=== PATIENT | female | born 1955 | race Caucasian/White ===

== ENCOUNTER → 2016-11-28 | Outpatient (CLI) | payer MEDICARE ==
[~2016-11-28] MED LIST: ADVAIR 250/501 EA INH; ALBUTEROL0.09 MG/A1 INH; ALBUTEROL0.09 MG/A2 IH; AMBIEN5 MG PO; AMITIZA24 MCG PO; AMOXICILLIN500 MG PO; APAP/OXYCODONE1 TA3 PO; ATIVAN0.5 MG PO; AUGMENTIN 875 M1 TAB PO; B12,B-12,B 12500 MC1 PO; BISACODYL5 MG PO; CALCIUM + D; CALCIUM + D 6001 TA1 PO; CARAFATE1 G1; CARAFATE1 G1 PO; CEFTIN250 MG PO; CELEBREX200 MG PO; CIPROFLOXACIN500 MG PO; CLARITIN10 MG PO; COMBIVENT1 ARO IH; CYMBALTA60 M1 PO; CYMBALTA60 MG PO; DAYPRO600 M1 PO; DIFLUCAN150 MG PO; DIOVAN80 M1 PO; DIPHENHYDRAM50 MG/M1 IV; DUONEB 3 MG/3 ML3 M1 INH; EXFORGE 10 MG-11 TAB PO; EXFORGE 5 MG; EXFORGE 5 MG PO; FERROUS SULFAT325 MG PO; FERROUS SULFATE27 MG PO; FLAGYL500 MG PO; FLEXERIL5 MG PO; FLONASE 0.05% 121 EA NAS; HUMIRA40 MG/0.1 SC; HYDROCODONE BIT1 T11 PO; KENALOG 0.1% OI15 GM T; LEVAQUIN500 M1 PO; LOPID600 MG PO; LOPRESSOR25 MG PO; LOPRESSOR50 MG PO; MACROBID100 M1 PO; MEDROL DOSEPAK4 MG PO; METOPROLOL50 MG PO; MOM30 M1 PO; MOTRIN800 MG PO; MUCINEX ER600 MG PO; MYCELEX TROCHE10 MG MM; NICODERM14 MG/24 H TD; NORCO 325 MG-51 TAB PO; NORFLEX100 MG PO; NYSTATIN100000 U/M PO; ONDANSETRON2 MG/ML IV; PERCOCET 325 MG1 TA3 PO; PERCOCET 325 MG1 TAB PO; PERCOCET 500 MG1 TAB PO; PHENERGAN W/ DE30 ML PO; PREDNICOT10 MG PO; PREDNISONE10 MG PO; PREDNISONE20 MG; PREDNISONE5 MG PO; PRILOSEC20 M2 PO; PRILOSEC20 MG PO; PRILOSEC40 MG PO; PROTONIX40 M1 IV; PROTONIX40 MG PO; Percocet 325 MG1 TAB PO; ROBAXIN750 MG PO; SKELAXIN800 MG PO; SOLU-MEDROL40 MG IV; SPIRIVA18 MCG IH; SPIRIVA18 MCG PO; SYMBICORT1 AE1 INH; TESSALON PERLE200 MG PO; TOPICORT0.25% TP; TRAMADOL HCL50 MG PO; ULTRAM50 MG PO; VIBRAMYCIN100 MG PO; VICO75300 PO; VICODIN 5/500 505 MG PO; VICODIN 500 MG-1 TAB PO; VIT B-6100 MG PO; VITAMIN B625 MG PO; WELLBUTRIN75 MG PO; XANAX0.5 MG PO; ZITHROMAX Z PA250 MG PO; ZOFRAN ODT4 MG SL; ZOFRAN4 MG PO; ZOLOFT50 MG PO; [UNRECOGNIZED DRUG - OTHER] PO; [UNRECOGNIZED DRUG - OTHER] PO
[2016-11-28 12:20] LABS: ALBUMIN 3.5 gm/dl (3.1-4.5); PHOSPHOROUS 3.6 mg/dL (2.5-4.9); POTASSIUM 4.6 mmol/L (3.5-5.1)
[2016-11-28 12:33] LABS: BILIRUBIN NEGATIVE (NEGATIVE); BLOOD 1+ (NEGATIVE); CLARITY CLEAR (CLEAR); COLOR YELLOW (YELLOW); GLUCOSE NEGATIVE (NEGATIVE); KETONE NEGATIVE (NEGATIVE); LEUKO ESTERASE NEGATIVE (NEGATIVE); NITRITE NEGATIVE (NEGATIVE); PH 5.5 (5.0-9.0); PROTEIN NEGATIVE (NEGATIVE); UROBILINOGEN 0.2 E.U./dl (0.2-1.0)
[2016-11-28 12:42] LABS: BACTERIA 1+; RBC 0-2 rbc/hpf (0-2)
== END | disposition home or self-care (01) ==
LOC: LAB 11:33
PROVIDERS: Internal Medicine Nephrology
DX: N17.9 Acute kidney failure, unspecified (principal)

== ENCOUNTER → 2017-01-01 | Outpatient (CLI) | payer MEDICARE | END | disposition home or self-care (01) | LOC: US 16:33 | DX: N17.9 Acute kidney failure, unspecified (principal) ==

== ENCOUNTER → 2017-02-13 | Outpatient (CLI) | payer MEDICARE ==
[2017-02-13 10:24] LABS: HEMATOCRIT 42.9 % (37.0-47.0); HEMOGLOBIN 13.6 g/dl (12.0-16.0); MEAN CELL VOLUME 91.3 fl (81.0-99.0); MEAN CORPUSCULAR HGB 28.9 pg (27.0-31.0); MEAN CORPUSCULAR HGB CONC 31.7 g/dl (33.0-37.0); PLATELET COUNT AUTOMATED 38 10*3/uL (130-400); RED CELL DISTRI WIDTH 13.2 % (0-14.5); WHITE BLOOD COUNT 7.4 10*3/uL (4.8-10.8)
[2017-02-13 10:46] LABS: PLATELET SUFFICIENCY LOW (NORMAL); TOTAL CELLS COUNTED 100 #CELLS
[2017-02-13 10:47] LABS: CREATININE 1.38 mg/dL (0.55-1.02); PHOSPHOROUS 3.3 mg/dL (2.5-4.9); POTASSIUM 4.4 mmol/L (3.5-5.1)
[2017-02-13 10:49] LABS: ALBUMIN 3.4 gm/dl (3.1-4.5)
[2017-02-13 12:23] LABS: BILIRUBIN NEGATIVE (NEGATIVE); BLOOD TRACE-INTACT (NEGATIVE); CLARITY SL CLOUDY (CLEAR); COLOR YELLOW (YELLOW); GLUCOSE NEGATIVE (NEGATIVE); KETONE NEGATIVE (NEGATIVE); LEUKO ESTERASE NEGATIVE (NEGATIVE); NITRITE NEGATIVE (NEGATIVE); SPECIFIC GRAVITY <= 1.005 (1.005-1.030); UROBILINOGEN 0.2 E.U./dl (0.2-1.0)
[2017-02-13 12:30] LABS: URINE CHLORIDE, RANDOM < 10 mmol/L
[2017-02-13 12:42] LABS: BACTERIA 2+; EPITHELIAL CELLS 15-20
== END | disposition home or self-care (01) ==
LOC: LAB 09:35
PROVIDERS: Internal Medicine Nephrology
DX: E78.5 Hyperlipidemia, unspecified (principal); N17.9 Acute kidney failure, unspecified; Z79.899 Other long term (current) drug therapy

== ENCOUNTER 2017-06-05 13:58 | Inpatient (IN) | payer MEDICARE ==
[~2017-06-05] VITALS: Ht 160 cm; Wt 69.9 kg
--- NOTE | ~2017-06-05 | PR ---
[place], [place] PROGRESS NOTE NAME: CARL CHOE [facility] #: [id number] UNIT #: [id number] ROOM: 427 DOCTOR: JOHN MATHUR MD BIRTHDATE: [birth year] DOS: 06/07/2017 SUBJECTIVE: The patient is doing better. She is alert, awake and responsive. REVIEW OF SYSTEMS HEENT: No trouble swallowing. No double vision. No loss of vision. No pain. ENT AND RESPIRATORY: No wheeze. No change in voice. No cough. No shortness of breath. No coughing up blood. No epistaxis. CARDIOLOGIC: No chest pain. No dizziness. No irregular heartbeat. No leg edema. No palpitations. No shortness of breath. HEMATOLOGIC AND LYMPH: No past transfusion. No fatigue. No loss of appetite. No easy bruising. GASTROENEROLOGIC: No change in bowel habits. No vomiting blood. No abdominal cramping. No nausea. No vomiting. No diarrhea. No constipation. No blood in stool. FEMALE REPRODUCTIVE: No dyspareunia. No pelvic pain. MUSCULOSKELETAL: No back pain. No muscle pain or weakness. No tingling/numbness. UROLOGIC: No pain with urination. No difficulty urinating. No frequent urination. NEUROLOGIC: No burning pain in feet. No trouble with coordination. No loss of consciousness. No headache. No tingling/numbness. No memory loss. PHYSICAL EXAMINATION GENERAL: Pleasant woman in no apparent distress. VITAL SIGNS: Blood pressure 132/72, respirations 15, pulse 80, temperature 98.3. HEAD, EARS, EYES, NOSE AND THROAT: Normocephalic, atraumatic NECK AND THYROID: Supple. No JVD, thyromegaly, or lymphadenopathy. HEART: Normal S1, S2. Regular rate and rhythm. LUNGS: Clear to auscultation and percussion. ABDOMEN: Soft. Nontender, nondistended. Bowel sounds present. EXTREMITIES: Normal ROM. No clubbing. No edema. LABORATORY DATA: White count of 4.6, hemoglobin 8.2, hematocrit 26.2, platelet count of 24,000. Sodium 145, potassium 3.9, chloride 109, bicarbonate 30, EGFR more than 60. ASSESSMENT: 1. Pancytopenia. 2. History of acute GI hemorrhage. 3. ITP. 4. Von Willebrand disease. PLAN: A detailed discussion, the patient will get anemia workup. We will get anemia workup depending upon the further intervention. The patient was advised if she has not had any bruises, bleeding to the closest petechia, instructed to call us. Ample time was given to the patient to ask me questions. [place], [place] PROGRESS NOTE NAME: CARL CHOE UNIT #: [id number] ROOM: 427 DOCTOR: JOHN MATHUR MD BIRTHDATE: [birth year] JOHN MATHUR MD CM:PNTRANS 1413 1850 JOHN MATHUR MD 06/07/17 1848 interface
--- NOTE | ~2017-06-05 | O ---
[place], [place] OPERATIVE NOTE NAME: CARL CHOE [facility] #: [id number] UNIT #: [id number] ROOM: 427 DO[facility] BIRTH[facility]: [birth year] DOS: 06/07/2017 GASTROENDOSCOPIC REPORT INDICATIONS: This is a 61-year-old patient who presented with a chief complaint of dark stool, colostomy and drop of H and H. The patient had to be admitted for definitive evaluation and endoscopy of upper tract has been organized for her. PAST MEDICAL HISTORY: Gastroesophageal reflux, hypertension, ischemic colitis and as a result, an ileostomy, depression, COPD, ITP with significant thrombocytopenia of approximately 25,000 average. PAST SURGICAL HISTORY: Colectomy, ileostomy, cholecystectomy, tubal ligation, cataract, , appendectomy, all recognized. SOCIAL HISTORY: Nonsmoker, nonalcohol consumer. FAMILY HISTORY: Noncontributory. ALLERGIES: ASPIRIN. MEDICATION: List has been reviewed. The patient has been continuously on omeprazole amongst the other medications reviewed. PROCEDURE: Today's procedure part of investigation is panendoscopy plus biopsy. PREMEDICATION: Versed and Diprivan. SCOPE: Olympus forward-viewing gastroscope Q10 video. REPORT: After putting the patient in left lateral position and application of lubricant to the scope, the scope was introduced. Thereafter, under direct visualization, advanced through the length of esophagus without difficulty. There is no evidence of esophageal varicosity. There is a small hiatal hernia of 2 cm. Gastric pouch was entered. Gastritis of mild degree seen. Duodenal bulb, second and third part within normal limits. There is no evidence of bleeding. The patient extubated after biopsy from antrum, tolerated procedure well. IMPRESSION: Mild gastritis, hiatal hernia, status post antral biopsy. PLAN AND DISCUSSION: This patient has severe thrombocytopenia secondary to ITP. Initial H and H on 06/05/2017 was 10, 7, and 34 with platelet count of 36. This has further dropped to 8 and 26 after one unit of transfusion and her platelets again ring around 24,000. Blood cultures have been negative. This patient's source of bleeding could have had also contribution from severe thrombocytopenia on mucosal blood loss as well, possibility of angiodysplastic lesions along the way in the small bowel, also known history of Von Willebrand disease. The patient therefore is going to be observed with H and H followup [place], [place] OPERATIVE NOTE NAME: CARL CHOE UNIT #: [id number] ROOM: 427 DOCTOR: KACI NORIEGA,ARCHANA BIRTHDATE: [birth year] and she does not have upper GI source of bleeding as well we know that she has had ischemic colitis and resection. We will be standing by, otherwise, she will be fed and will reassess. She has already received a unit of packed cell and a unit of platelet transfusion. The patient has been on iron therapy as well. The contribution to tolerate darker stool rather could be from above in appearance of the stool color. Thank you very much indeed. ARCHANA CLEMONS MD CM:OPRECORD:OPERATIVE NOTE [id number] ARCHANA CLEMONS MD 06/07/17 1432 interface
--- NOTE | ~2017-06-05 | CON ---
[place], [place] REPORT OF CONSULTATION NAME: CARL CHOE [facility] #: [id number] UNIT #: [id number] ROOM: 427 DOCTOR: JOHN MATHUR MD BIRTHDATE: [birth year] DOS: 06/06/2017 HISTORY OF PRESENT ILLNESS: The patient is a pleasant 61-year-old Euro-Martiniquais woman who presented to the Emergency Room because of dark tarry stools in her ileostomy bag, which has been started about 3 days ago and has got progressively worse, though she denies any chest pain, nausea, vomiting or shortness of breath. She also had a history of previous ____ in 2015 or 2016 and subsequently consulted for further evaluation and management. PAST MEDICAL HISTORY: Significant for chronic anemia, chronic ITP, COPD, depression, GERD, hypercholesterolemia with hyperglycemia, hypertension, ileostomy, insomnia, ischemic colitis, chronic Von Willebrand disease as per record. PAST SURGICAL HISTORY: Appendectomy, , cataract surgery, cholecystectomy, colon resection, tubal ligation, ileostomy. SOCIAL HISTORY: No smoking, no drinking or drug abuse, chronic tobacco use. FAMILY HISTORY: Father at age 50-60 of colon cancer, had ITP. Mother age 60 of lung cancer. ALLERGIES: ASPIRIN. MEDICATIONS: On Norvasc, albuterol, Lopressor, Prilosec, Percocet, Seroquel and Zocor. REVIEW OF SYSTEMS: CONSTITUTIONAL: No chills. No fatigue. No fever. No loss of appetite. No night sweats. No weakness. No weight loss. HEENT: No trouble swallowing. No loss of smell. No loss of hearing. No double vision. No pain. No discharge. ENT AND RESPIRATORY: No wheeze. No sore throat. No change in voice. No hearing loss. No nose bleed. No cough. No trouble breathing through nose. No shortness of breath. No coughing up blood. No epistaxis. CARDIOVASCULAR: No chest pain. No dizziness. No irregular heartbeat. No leg edema. No pain in legs while walking. No palpitations. No shortness of breath. DERMATOLOGIC: No acne. No hives. No laceration. No mole. No rash. ENDOCRINE: No cold intolerance. No diabetes. No fatigue. No hot flashes. No polydipsia. No polyuria. No urinating frequently. No weight loss. HEMATOLOGIC AND LYMPH: No fatigue. No easy bruising. GASTROENTEROLOGIC: No change in bowel habits. No indigestion. No frequent bloating. No vomiting blood. No abdominal cramping. No nausea. No heartburn. No vomiting. No abdominal pain. No dysphagia. No diarrhea. No constipation. No blood in stool. FEMALE REPRODUCTIVE: No vaginal itching. No difficulty urinating. No heavy periods. No dyspareunia. No sexually active. No dysmenorrhea. No pelvic pain. No breast pain. No nipple discharge. No abnormal vaginal discharge. No hot flashes. [place], [place] REPORT OF CONSULTATION NAME: CARL CHOE UNIT #: [id number] ROOM: 427 DOCTOR: JOHN MATHUR MD BIRTHDATE: [birth year] MUSCULOSKELETAL: No back pain. No muscle pain or weakness. No neck pain. No tingling/numbness. No swelling/bruising. No osteoporosis treatment. OPHTHALMOLOGIC: No double vision. No diminished vision. No loss of vision. UROLOGIC: No dysuria. No frequent nighttime urination. No irregular periods. No pain with urination. No difficulty urinating. No blood in urine. No frequent urination. No urinary incontinence. NEUROLOGIC: No loss of sensation in specific body area. No vertigo. No burning pain in feet. No trouble with balance. No trouble with coordination. No loss of consciousness. No loss of feeling/power. No confusion. No headache. No tingling/numbness. PSYCHOLOGIC: No tinnitus. No headaches. No shortness of breath. No weight decrease. No nausea. No vomiting. No abdominal discomfort. No constipation. No diarrhea. No depression. No anxiety. PHYSICAL EXAMINATION: GENERAL: Pleasant woman in no apparent distress. VITAL SIGNS: Stable. She is afebrile. HEENT: Oral mucosa appears intact. The external ears are normal in appearance. Nares are patent without lesions, exudates, erythema, or inflammation. Tongue is symmetrical. Uvula is midline. NECK AND THYROID: Neck supple without palpable masses. Trachea is midline. No thyromegaly. No carotid bruit or JVD. BREASTS: Normal. Nipples unremarkable. No drainage. No lumps felt on either side. HEART: Normal S1, S2, without significant murmur, rub, or gallop. LUNGS: Clear to auscultation and percussion with good air entry bilaterally. The patient is breathing easily without the use of accessory muscles. Diaphragmatic excursions are intact. ABDOMEN: No costovertebral angle tenderness. Soft. No organomegaly or masses. Nontender. No hernias present. Liver and spleen are not palpable. LYMPHATIC: No adenopathy noted in the cervical, supraclavicular, axillary, or inguinal regions. NEUROLOGIC: Nonfocal. Oriented to person, place, and time. MENTAL STATUS: Appropriate for mood and affect. PERIPHERAL PULSES: No varicosities. Femoral and pedal pulses are palpable. EXTREMITIES: Without cyanosis, clubbing, or edema. No gross anomalies. LABORATORY DATA: Sodium 141, potassium 3.7, chloride 103, bicarbonate 32, EGFR is 42. White count of 6.7, hemoglobin of 9.5, hematocrit 30.5, platelet count 26,000. Sodium 141, potassium 4.0, chloride 104, bicarbonate 33, total protein 5.6, albumin 2.9, SGOT 25, SGPT 16. ASSESSMENT: 1. Chronic idiopathic thrombocytopenic purpura, since she has been for 60 years. 2. Gastrointestinal bleed. 3. Anemia. 4. Abdominal aortic aneurysm. 5. History of von Willebrand disease. [place], [place] REPORT OF CONSULTATION [facility]: [id number] #: [id number] ROOM: [facility] DOCTOR: JOHN MATHUR MD BIRTHDATE: [birth year] PLAN: I will review records from clinic. The patient was initially diagnosed as well as she will be getting platelets before the procedure. We will keep a close watch at this time. Advised any bruising, fatigue etc., to call for a close followup for now. We will review the CAT scan. Ample time was given to the patient to ask me questions and we will follow. Thanks for consulting and letting me participate in the care of this interesting patient. JOHN MATHUR MD CM:CONSTR:REPORT OF CONSULTATION 1434 06/07/17 0031 interface
[2017-06-05 14:06] VITALS: BP 93/61
[2017-06-05] MEDS ORDERED: PRILOSEC20 M1 PO (14:09)
[2017-06-05] MEDS ORDERED: NORVASC2.5 MG PO (14:10)
[2017-06-05] MEDS ORDERED: SEROQUEL100 MG PO (14:11)
[2017-06-05] MEDS ORDERED: ZOCOR20 MG PO (14:11)
[2017-06-05 14:48] LABS: HEMOGLOBIN 10.7 g/dl (12.0-16.0); MEAN CELL VOLUME 92.4 fl (81.0-99.0); MEAN CORPUSCULAR HGB 29.1 pg (27.0-31.0); MEAN CORPUSCULAR HGB CONC 31.5 g/dl (33.0-37.0); NUCLEATED RED BLOOD CELL 0.3 % (0.0-0.0); PLATELET COUNT AUTOMATED 36 10*3/uL (130-400); RED BLOOD COUNT 3.68 10*6/uL (4.10-5.10); WHITE BLOOD COUNT 7.8 10*3/uL (4.8-10.8)
[2017-06-05 14:56] VITALS: BP 122/98
[2017-06-05 14:57] LABS: ACT PARTIAL THROMBO TIME 25.6 SECONDS (20.8-31.5)
[2017-06-05 15:03] LABS: ALBUMIN 3.3 gm/dl (3.1-4.5); ALKALINE PHOSPHATASE 80 U/L (45-117); BUN 16 mg/dl (7-24); CHLORIDE 103 mmol/L (98-107); CREATININE 1.29 mg/dL (0.55-1.02); LIPASE 372 U/L (73-393); POTASSIUM 3.7 mmol/L (3.5-5.1); SGOT/AST 30 IU/L (3-35); SGPT/ALT 18 U/L (12-78); SODIUM 141 mmol/L (136-145); TOTAL PROTEIN 6.7 gm/dL (6.4-8.2)
[2017-06-05 15:04] LABS: TROPONIN I < 0.015 ng/ml (<0.045)
[2017-06-05 15:17] LABS: ATYPICAL LYMPHS 1 % (0-0); TOTAL CELLS COUNTED 100 #CELLS
[2017-06-05 15:18] LABS: PLATELET SUFFICIENCY LOW (NORMAL); POLYCHROMASIA SLIGHT
[2017-06-05 17:25] VITALS: BP 101/55
[2017-06-05 18:20] VITALS: BP 102/64
[2017-06-05 20:00] VITALS: BP 111/65
[2017-06-06] VITALS: BP 128/72
[2017-06-06 04:00] VITALS: BP 116/80
[2017-06-06 04:22] LABS: HEMATOCRIT 30.5 % (37.0-47.0); HEMOGLOBIN 9.5 g/dl (12.0-16.0); MEAN CELL VOLUME 94.1 fl (81.0-99.0); MEAN CORPUSCULAR HGB 29.3 pg (27.0-31.0); MEAN CORPUSCULAR HGB CONC 31.1 g/dl (33.0-37.0); RED BLOOD COUNT 3.24 10*6/uL (4.10-5.10); RED CELL DISTRI WIDTH 14.2 % (0-14.5); WHITE BLOOD COUNT 6.7 10*3/uL (4.8-10.8)
[2017-06-06 04:26] LABS: PLATELET COUNT AUTOMATED 26 10*3/uL (130-400)
[2017-06-06 04:36] LABS: ALBUMIN 2.9 gm/dl (3.1-4.5); ALKALINE PHOSPHATASE 65 U/L (45-117); BUN 12 mg/dl (7-24); CHLORIDE 104 mmol/L (98-107); CHOLESTEROL 119 mg/dL (<200); CREATININE 0.92 mg/dL (0.55-1.02); HDL CHOLESTEROL 30 mg/dl (40-60); LDL CHOLESTEROL 43 mg/dL (9-159); PHOSPHOROUS 3.5 mg/dL (2.5-4.9); SGOT/AST 25 IU/L (3-35); SGPT/ALT 16 U/L (12-78); SODIUM 141 mmol/L (136-145); TOTAL PROTEIN 5.6 gm/dL (6.4-8.2); TRIGLYCERIDES 230 mg/dl (<150); VLDL CHOLESTEROL 46 mg/dL (6-40)
[2017-06-06 04:38] LABS: FREE T4 0.94 ng/dl (0.76-1.46)
[2017-06-06 04:44] LABS: TOTAL CELLS COUNTED 100 #CELLS
[2017-06-06 04:45] LABS: PLATELET SUFFICIENCY LOW (NORMAL); POLYCHROMASIA SLIGHT
[2017-06-06 06:46] LABS: VITAMIN D, 25-HYDROXY 14.2 ng/mL (30-100)
[2017-06-06 08:00] VITALS: BP 119/73
[2017-06-06 12:00] VITALS: BP 106/66
[2017-06-06 16:00] VITALS: BP 114/70
[2017-06-06 20:00] VITALS: BP 123/81
[2017-06-07] VITALS (9 sets, daily range): BP systolic 98–145; BP diastolic 53–91
[2017-06-07 07:26] LABS: HEMATOCRIT 26.2 % (37.0-47.0); HEMOGLOBIN 8.2 g/dl (12.0-16.0); MEAN CELL VOLUME 95.3 fl (81.0-99.0); MEAN CORPUSCULAR HGB 29.8 pg (27.0-31.0); MEAN CORPUSCULAR HGB CONC 31.3 g/dl (33.0-37.0); MEAN PLATELET VOLUME 13.3 fl (9.6-12.3); RED BLOOD COUNT 2.75 10*6/uL (4.10-5.10); RED CELL DISTRI WIDTH 14.7 % (0-14.5); WHITE BLOOD COUNT 4.6 10*3/uL (4.8-10.8)
[2017-06-07 07:31] LABS: PLATELET COUNT AUTOMATED 24 10*3/uL (130-400)
[2017-06-07 07:48] LABS: BUN 10 mg/dl (7-24); CHLORIDE 109 mmol/L (98-107); CREATININE 0.91 mg/dL (0.55-1.02); POTASSIUM 3.9 mmol/L (3.5-5.1); SODIUM 145 mmol/L (136-145)
[2017-06-07 08:33] LABS: PLATELET SUFFICIENCY LOW (NORMAL); POLYCHROMASIA SLIGHT; TOTAL CELLS COUNTED 100 #CELLS
[2017-06-08] VITALS: BP 99/49
[2017-06-08 07:33] LABS: BUN 5 mg/dl (7-24); CHLORIDE 109 mmol/L (98-107); CREATININE 0.84 mg/dL (0.55-1.02); POTASSIUM 3.8 mmol/L (3.5-5.1); SODIUM 144 mmol/L (136-145)
[2017-06-08 07:37] LABS: BASOPHILS 1 % (0-1); TOTAL CELLS COUNTED 100 #CELLS
[2017-06-08 07:40] LABS: HEMATOCRIT 26.5 % (37.0-47.0); HEMOGLOBIN 8.2 g/dl (12.0-16.0); MEAN CORPUSCULAR HGB 29.7 pg (27.0-31.0); MEAN CORPUSCULAR HGB CONC 30.9 g/dl (33.0-37.0); MEAN PLATELET VOLUME 13.7 fl (9.6-12.3); NUCLEATED RED BLOOD CELL 0.8 % (0.0-0.0); RED BLOOD COUNT 2.76 10*6/uL (4.10-5.10); RED CELL DISTRI WIDTH 15.4 % (0-14.5); WHITE BLOOD COUNT 3.6 10*3/uL (4.8-10.8)
[2017-06-08 07:41] LABS: PLATELET SUFFICIENCY LOW (NORMAL); POLYCHROMASIA SLIGHT
[2017-06-08 07:42] LABS: PLATELET COUNT AUTOMATED 32 10*3/uL (130-400)
[2017-06-08 08:00] VITALS: BP 122/66
[2017-06-08 12:00] VITALS: BP 107/52
[2017-06-08 16:00] VITALS: BP 108/55
[2017-06-08 20:00] VITALS: BP 95/56
[2017-06-09] VITALS: BP 93/64
[2017-06-09 06:21] LABS: HEMATOCRIT 26.1 % (37.0-47.0); MEAN CELL VOLUME 95.6 fl (81.0-99.0); MEAN CORPUSCULAR HGB 29.3 pg (27.0-31.0); MEAN CORPUSCULAR HGB CONC 30.7 g/dl (33.0-37.0); NUCLEATED RED BLOOD CELL 0.8 % (0.0-0.0); PLATELET COUNT AUTOMATED 33 10*3/uL (130-400); RED BLOOD COUNT 2.73 10*6/uL (4.10-5.10); RED CELL DISTRI WIDTH 15.6 % (0-14.5)
[2017-06-09 06:46] LABS: BUN 8 mg/dl (7-24); CHLORIDE 107 mmol/L (98-107); CREATININE 0.95 mg/dL (0.55-1.02); POTASSIUM 3.8 mmol/L (3.5-5.1); SODIUM 145 mmol/L (136-145)
[2017-06-09 07:23] LABS: PLATELET SUFFICIENCY LOW (NORMAL); POLYCHROMASIA SLIGHT; TOTAL CELLS COUNTED 100 #CELLS
[2017-06-09 08:00] VITALS: BP 126/54
[2017-06-09] MEDS ORDERED: VITAMIN D-32000 UNIT PO (11:02)
[2017-06-09] MEDS ORDERED: PROTONIX40 MG PO (14:43)
== END 2017-06-09 12:46 | disposition home or self-care (01) | DRG 378 ==
LOC: ED 13:58 → ICCU 17:33 → 4E 17:33 → EDHOLD 17:33 → ICCU 17:56 → 4E 06-06 11:25
PROVIDERS: Emergency Medicine; Internal Medicine; Internal Medicine Gastroenterology; Internal Medicine Hematology & Oncology
PROC: 0DB68ZX Excision of Stomach, Via Natural or Artificial Opening Endoscopic, Diagnostic (ICD-10-PCS; principal; 2017-06-07)
PROC: 30233R1 Transfusion of Nonautologous Platelets into Peripheral Vein, Percutaneous Approach (ICD-10-PCS; 2017-06-07)
DX: K29.71 Gastritis, unspecified, with bleeding (principal); D62 Acute posthemorrhagic anemia; D69.3 Immune thrombocytopenic purpura; D61.818 Other pancytopenia; R65.10 Systemic inflammatory response syndrome (SIRS) of non-infectious origin without acute organ dysfunction; E44.0 Moderate protein-calorie malnutrition; D68.0 Von Willebrand disease; I71.4 Abdominal aortic aneurysm, without rupture; J44.9 Chronic obstructive pulmonary disease, unspecified; K21.9 Gastro-esophageal reflux disease without esophagitis; F32.9 Major depressive disorder, single episode, unspecified; R00.0 Tachycardia, unspecified; D72.810 Lymphocytopenia; D72.9 Disorder of white blood cells, unspecified; E55.9 Vitamin D deficiency, unspecified; I10 Essential (primary) hypertension; G47.00 Insomnia, unspecified; K44.9 Diaphragmatic hernia without obstruction or gangrene; E78.00 Pure hypercholesterolemia, unspecified; E78.1 Pure hyperglyceridemia; Z68.27 Body mass index [BMI] 27.0-27.9, adult; Z88.6 Allergy status to analgesic agent; Z90.49 Acquired absence of other specified parts of digestive tract; Z98.51 Tubal ligation status; Z98.49 Cataract extraction status, unspecified eye; Z80.1 Family history of malignant neoplasm of trachea, bronchus and lung; Z80.0 Family history of malignant neoplasm of digestive organs; Z79.899 Other long term (current) drug therapy; Z93.3 Colostomy status; Z93.2 Ileostomy status

== ENCOUNTER 2017-06-13 09:20 | Inpatient (IN) | payer MEDICARE ==
[~2017-06-13] VITALS: Ht 157.5 cm; Wt 73.5 kg
[2017-06-13] VITALS (9 sets, daily range): BP systolic 87–120; BP diastolic 50–82
--- NOTE | ~2017-06-13 | CON ---
[place], [place] REPORT OF CONSULTATION NAME: CARL CHOE [facility] #: [id number] UNIT #: [id number] ROOM: 404 DOCTOR: KEVAN NORIEGAJOHN BIRTHDATE: [birth year] DOS: 06/14/2017 HISTORY OF PRESENT ILLNESS: The patient is a pleasant 61-year-old Euro-Slovak woman who was recently discharged from the [facility] and started complaining of weakness, lightheadedness, and headaches. At that time, she was noted to be anemic, possible GI bleed, and underwent EGD. On routine CBC examination, was found to be anemic and thrombocytopenic and consulted for further evaluation and management. PAST MEDICAL HISTORY: 1. ITP, chronic progressive anemia. 2. History of Von Willebrand disease. 3. Depression. 4. GERD. 5. History of ischemic colitis. 6. Hypercholesterolemia. 7. Hyperglycemia. 8. Hypertension. 9. Ileostomy present. PAST SURGICAL HISTORY: Appendectomy, , cataract surgery, history of cholecystectomy, and colon resection. SOCIAL HISTORY: Smokes about 1 packet per day for last 20 years. No drinking. FAMILY HISTORY: Father at age 50 also had colon cancer, had ITP. Mother at age 60 had lung cancer. ALLERGIES: ASPIRIN. MEDICATIONS: Norvasc, Wellbutrin, Lopressor, Prilosec, Percocet, Seroquel, and Zocor. PHYSICAL EXAMINATION: GENERAL: A pleasant woman in no apparent distress. VITAL SIGNS: Stable. She is afebrile. HEENT: Normocephalic, atraumatic. Pupils are reactive. Nonicteric sclerae. NECK: Supple. No JVD, thyromegaly, or lymphadenopathy. LUNGS: Clear to auscultation and percussion. ____. ABDOMEN: Soft, nontender. Bowel sounds positive. No rebound or guarding. No hepatosplenomegaly. EXTREMITIES: Positive pulses. NEUROLOGIC: Oriented to person, place, and time. MENTAL STATUS: Appropriate mood and affect. LYMPH NODES: No lymphadenopathy in the cervical, supraclavicular, axillary, or inguinal regions. REVIEW OF SYSTEMS: HEENT: The patient has headaches, blurring of vision, and dizziness. CARDIOVASCULAR: No chest pain, palpitations, or arrhythmia. [place], [place] REPORT OF CONSULTATION NAME: CARL CHOE UNIT #: [id number] ROOM: 404 DOCTOR: JOHN MATHUR MD BIRTHDATE: [birth year] RESPIRATORY: No shortness of breath or hemoptysis. GASTROINTESTINAL: No nausea, vomiting, bowel habit, loss of weight, hematemesis, bright red blood per rectum, constipation, or diarrhea. GENITOURINARY: No increased frequency, urgency, or burning sensation in the urine, difficulty micturating. LABORATORY DATA: From 06/13/2017, white count of 6.4, hemoglobin 7.8, hematocrit 26.4, and platelet count 39,000. ASSESSMENT: 1. Symptomatic anemia. 2. Chronic idiopathic thrombocytopenic purpura. 3. Acute renal failure with tubular necrosis. 4. History of Von Willebrand disease. PLAN: We will do peripheral smear to get blood. We will also get hemolytic workup. Platelets are stable at this time, if start dropping further, then intervention. Depending on the workup, further intervention discussed. We will follow. She is status post 3 x 3 units of packed RBC. Thanks for consulting and letting me to participate in the care of this interesting patient. JOHN MATHUR MD CM:CONSTR:REPORT OF CONSULTATION 1455 06/15/17 0205 interface
[~2017-06-13 09:20] MED LIST changes: +NORVASC2.5 MG PO; +PRILOSEC20 M1 PO; +SEROQUEL100 MG PO; +VITAMIN D-32000 UNIT PO; +ZOCOR20 MG PO
[2017-06-13 10:53] LABS: HEMATOCRIT 26.4 % (37.0-47.0); HEMOGLOBIN 7.8 g/dl (12.0-16.0); MEAN CELL VOLUME 98.5 fl (81.0-99.0); MEAN CORPUSCULAR HGB 29.1 pg (27.0-31.0); MEAN CORPUSCULAR HGB CONC 29.5 g/dl (33.0-37.0); NUCLEATED RED BLOOD CELL 0.1 10*3/uL (0.0-0.0); NUCLEATED RED BLOOD CELL 0.9 % (0.0-0.0); PLATELET COUNT AUTOMATED 39 10*3/uL (130-400); RED BLOOD COUNT 2.68 10*6/uL (4.10-5.10); RED CELL DISTRI WIDTH 17.3 % (0-14.5); WHITE BLOOD COUNT 6.4 10*3/uL (4.8-10.8)
[2017-06-13 11:07] LABS: ALBUMIN 3.1 gm/dl (3.1-4.5); ALKALINE PHOSPHATASE 75 U/L (45-117); BUN 12 mg/dl (7-24); CHLORIDE 104 mmol/L (98-107); CREATININE 1.15 mg/dL (0.55-1.02); POTASSIUM 3.9 mmol/L (3.5-5.1); SGOT/AST 10 IU/L (3-35); SGPT/ALT 14 U/L (12-78); SODIUM 139 mmol/L (136-145); TOTAL PROTEIN 6.3 gm/dL (6.4-8.2)
[2017-06-13 11:08] LABS: TROPONIN I < 0.015 ng/ml (<0.045)
[2017-06-13 11:12] LABS: BASOPHILS 1 % (0-1); OVALOCYTES FEW; PLATELET SUFFICIENCY LOW (NORMAL); POLYCHROMASIA SLIGHT; TOTAL CELLS COUNTED 100 #CELLS
[2017-06-13 21:03] LABS: HEMOGLOBIN 6.6 g/dl (12.0-16.0); MEAN CELL VOLUME 97.8 fl (81.0-99.0); MEAN CORPUSCULAR HGB 29.3 pg (27.0-31.0); MEAN PLATELET VOLUME 13.8 fl (9.6-12.3); NUCLEATED RED BLOOD CELL 0.4 % (0.0-0.0); PLATELET COUNT AUTOMATED 30 10*3/uL (130-400); RED BLOOD COUNT 2.25 10*6/uL (4.10-5.10); RED CELL DISTRI WIDTH 17.1 % (0-14.5); WHITE BLOOD COUNT 5.7 10*3/uL (4.8-10.8)
[2017-06-13 21:25] LABS: POLYCHROMASIA SLIGHT; TOTAL CELLS COUNTED 100 #CELLS
[2017-06-13 21:26] LABS: PLATELET SUFFICIENCY LOW (NORMAL)
[2017-06-14] VITALS (15 sets, daily range): BP systolic 99–140; BP diastolic 57–83
[2017-06-14 07:13] LABS: HEMATOCRIT 27.3 % (37.0-47.0); HEMOGLOBIN 8.4 g/dl (12.0-16.0); MEAN CORPUSCULAR HGB 28.4 pg (27.0-31.0); MEAN CORPUSCULAR HGB CONC 30.8 g/dl (33.0-37.0); NUCLEATED RED BLOOD CELL 0.7 % (0.0-0.0); PLATELET COUNT AUTOMATED 31 10*3/uL (130-400); RED BLOOD COUNT 2.96 10*6/uL (4.10-5.10); RED CELL DISTRI WIDTH 19.9 % (0-14.5); WHITE BLOOD COUNT 4.3 10*3/uL (4.8-10.8)
[2017-06-14 07:22] LABS: MEAN CELL VOLUME 92.2 fl (81.0-99.0)
[2017-06-14 07:31] LABS: ALBUMIN 2.7 gm/dl (3.1-4.5); ALKALINE PHOSPHATASE 62 U/L (45-117); BUN 8 mg/dl (7-24); CHLORIDE 109 mmol/L (98-107); CREATININE 1.01 mg/dL (0.55-1.02); PHOSPHOROUS 4.5 mg/dL (2.5-4.9); SGOT/AST 16 IU/L (3-35); SGPT/ALT 11 U/L (12-78); SODIUM 145 mmol/L (136-145); TOTAL PROTEIN 5.6 gm/dL (6.4-8.2)
[2017-06-14 07:39] LABS: ACT PARTIAL THROMBO TIME 27.5 SECONDS (20.8-31.5)
[2017-06-14 07:58] LABS: TOTAL CELLS COUNTED 100 #CELLS
[2017-06-14 07:59] LABS: PLATELET SUFFICIENCY LOW (NORMAL); POLYCHROMASIA SLIGHT
[2017-06-14 08:58] LABS: RETICULOCYTE % 8.24 % (0.50-2.50)
[2017-06-14 10:23] LABS: HEMATOCRIT 28.3 % (37.0-47.0); HEMOGLOBIN 8.6 g/dl (12.0-16.0)
[2017-06-15] VITALS (11 sets, daily range): BP systolic 95–138; BP diastolic 42–77
[2017-06-15 05:53] LABS: HEMATOCRIT 27.3 % (37.0-47.0); HEMOGLOBIN 8.2 g/dl (12.0-16.0); MEAN CELL VOLUME 92.9 fl (81.0-99.0); MEAN CORPUSCULAR HGB 27.9 pg (27.0-31.0); RED BLOOD COUNT 2.94 10*6/uL (4.10-5.10); RED CELL DISTRI WIDTH 19.6 % (0-14.5); WHITE BLOOD COUNT 4.3 10*3/uL (4.8-10.8)
[2017-06-15 06:14] LABS: PLATELET COUNT AUTOMATED 28 10*3/uL (130-400)
[2017-06-15 06:22] LABS: ACT PARTIAL THROMBO TIME 28.6 SECONDS (20.8-31.5)
[2017-06-15 06:24] LABS: ALBUMIN 2.9 gm/dl (3.1-4.5); ALKALINE PHOSPHATASE 68 U/L (45-117); BUN 9 mg/dl (7-24); CHLORIDE 105 mmol/L (98-107); CREATININE 1.11 mg/dL (0.55-1.02); PHOSPHOROUS 4.5 mg/dL (2.5-4.9); POTASSIUM 4.1 mmol/L (3.5-5.1); SGOT/AST 15 IU/L (3-35); SGPT/ALT 13 U/L (12-78); SODIUM 143 mmol/L (136-145); TOTAL PROTEIN 5.8 gm/dL (6.4-8.2)
[2017-06-15 06:32] LABS: PLATELET SUFFICIENCY LOW (NORMAL); TOTAL CELLS COUNTED 100 #CELLS
[2017-06-15 06:33] LABS: POLYCHROMASIA SLIGHT
[2017-06-15 10:04] LABS: HEMATOCRIT 32.4 % (37.0-47.0); HEMOGLOBIN 10.1 g/dl (12.0-16.0); MEAN CELL VOLUME 92.6 fl (81.0-99.0); MEAN CORPUSCULAR HGB 28.9 pg (27.0-31.0); MEAN CORPUSCULAR HGB CONC 31.2 g/dl (33.0-37.0); PLATELET COUNT AUTOMATED 31 10*3/uL (130-400); RED CELL DISTRI WIDTH 18.1 % (0-14.5); WHITE BLOOD COUNT 4.8 10*3/uL (4.8-10.8)
[2017-06-15 10:22] LABS: ATYPICAL LYMPHS 1 % (0-0); BASOPHILS 1 % (0-1); TOTAL CELLS COUNTED 100 #CELLS
[2017-06-15 10:23] LABS: OVALOCYTES FEW; POLYCHROMASIA SLIGHT
[2017-06-15 10:24] LABS: PLATELET SUFFICIENCY LOW (NORMAL)
[2017-06-16 06:03] LABS: HEMOGLOBIN 9.9 g/dl (12.0-16.0)
[2017-06-16 06:17] LABS: BUN 12 mg/dl (7-24); CHLORIDE 104 mmol/L (98-107); CREATININE 1.06 mg/dL (0.55-1.02); POTASSIUM 4.1 mmol/L (3.5-5.1); SODIUM 143 mmol/L (136-145)
[2017-06-16 08:00] VITALS: BP 112/72
== END 2017-06-16 11:17 | disposition home or self-care (01) | DRG 377 ==
LOC: ED 09:20 → EDHOLD 12:06 → 4E 12:06
PROVIDERS: Family Medicine; Internal Medicine Gastroenterology; Internal Medicine Hematology & Oncology; Internal Medicine Nephrology; Student in an Organized Health Care Education/Training Program
PROC: 30233N1 Transfusion of Nonautologous Red Blood Cells into Peripheral Vein, Percutaneous Approach (ICD-10-PCS; principal; 2017-06-14)
DX: K92.2 Gastrointestinal hemorrhage, unspecified (principal); N17.0 Acute kidney failure with tubular necrosis; D69.3 Immune thrombocytopenic purpura; I95.9 Hypotension, unspecified; D69.6 Thrombocytopenia, unspecified; D68.0 Von Willebrand disease; R65.10 Systemic inflammatory response syndrome (SIRS) of non-infectious origin without acute organ dysfunction; D64.9 Anemia, unspecified; D72.810 Lymphocytopenia; J44.9 Chronic obstructive pulmonary disease, unspecified; E78.2 Mixed hyperlipidemia; K21.9 Gastro-esophageal reflux disease without esophagitis; E78.00 Pure hypercholesterolemia, unspecified; F32.9 Major depressive disorder, single episode, unspecified; Z96.1 Presence of intraocular lens; F17.210 Nicotine dependence, cigarettes, uncomplicated; I71.4 Abdominal aortic aneurysm, without rupture; E55.9 Vitamin D deficiency, unspecified; G47.00 Insomnia, unspecified; Z80.1 Family history of malignant neoplasm of trachea, bronchus and lung; Z90.49 Acquired absence of other specified parts of digestive tract; Z88.6 Allergy status to analgesic agent; Z79.899 Other long term (current) drug therapy; Z93.2 Ileostomy status; Z98.51 Tubal ligation status; Z98.42 Cataract extraction status, left eye; Z98.41 Cataract extraction status, right eye; Z80.0 Family history of malignant neoplasm of digestive organs; Z83.3 Family history of diabetes mellitus; Z71.6 Tobacco abuse counseling

== ENCOUNTER → 2017-06-24 | Outpatient (CLI) | payer MEDICARE ==
[2017-06-24 13:55] LABS: IRON 42 ug/dL (50-170); TOTAL IRON BINDING CAPACITY 412 ug/dl (250-450)
[2017-06-24 14:26] LABS: FERRITIN 18.9 ng/mL (10.0-291.0)
== END | disposition home or self-care (01) ==
LOC: LAB 12:08
PROVIDERS: Internal Medicine Hematology & Oncology
DX: D61.818 Other pancytopenia (principal); D50.9 Iron deficiency anemia, unspecified

== ENCOUNTER → 2017-07-29 | Emergency (ER) | payer MEDICARE ==
[~2017-07-29] VITALS: Ht 157.4 cm; Wt 73.5 kg
[2017-07-29 11:17] LABS: HEMATOCRIT 18.8 % (37.0-47.0); MEAN CELL VOLUME 103.9 fl (81.0-99.0); MEAN CORPUSCULAR HGB 29.3 pg (27.0-31.0); MEAN CORPUSCULAR HGB CONC 28.2 g/dl (33.0-37.0); NUCLEATED RED BLOOD CELL 0.1 10*3/uL (0.0-0.0); NUCLEATED RED BLOOD CELL 1.3 % (0.0-0.0); RED BLOOD COUNT 1.81 10*6/uL (4.10-5.10); RED CELL DISTRI WIDTH 19.4 % (0-14.5); WHITE BLOOD COUNT 10.3 10*3/uL (4.8-10.8)
[2017-07-29 11:23] LABS: HEMOGLOBIN 5.3 g/dl (12.0-16.0); PLATELET COUNT AUTOMATED 21 10*3/uL (130-400)
[2017-07-29 11:35] LABS: ALBUMIN 2.5 gm/dl (3.1-4.5); ALKALINE PHOSPHATASE 63 U/L (45-117); BUN 22 mg/dl (7-24); CHLORIDE 108 mmol/L (98-107); CREATININE 1.12 mg/dL (0.55-1.02); LIPASE 434 U/L (73-393); POTASSIUM 4.4 mmol/L (3.5-5.1); SGOT/AST 15 IU/L (3-35); SGPT/ALT 15 U/L (12-78); SODIUM 143 mmol/L (136-145); TOTAL CELLS COUNTED 100 #CELLS; TOTAL PROTEIN 5.5 gm/dL (6.4-8.2)
[2017-07-29 11:36] LABS: PLATELET SUFFICIENCY LOW (NORMAL); POLYCHROMASIA MODERATE
[2017-07-29 11:38] LABS: TROPONIN I < 0.015 ng/ml (<0.045)
[2017-07-29 18:08] VITALS: BP 107/66
== END ==
LOC: ED 10:34
PROVIDERS: Emergency Medicine
DX: K92.2 Gastrointestinal hemorrhage, unspecified (principal); D64.9 Anemia, unspecified; F17.200 Nicotine dependence, unspecified, uncomplicated; J44.9 Chronic obstructive pulmonary disease, unspecified; K21.9 Gastro-esophageal reflux disease without esophagitis; E78.00 Pure hypercholesterolemia, unspecified; I10 Essential (primary) hypertension; Z98.890 Other specified postprocedural states; Z90.49 Acquired absence of other specified parts of digestive tract; Z98.51 Tubal ligation status; Z79.899 Other long term (current) drug therapy; Z88.6 Allergy status to analgesic agent

== ENCOUNTER 2018-03-08 13:19 | Emergency (ER) | payer MEDICARE ==
[~2018-03-08] VITALS: Ht 157.4 cm; Wt 78.5 kg
[2018-03-08 13:21] VITALS: BP 104/64
[2018-03-08] MEDS ORDERED: FLONASE ALLERG9.9 ML NAS (13:48)
[2018-03-08] MEDS ORDERED: CLARITIN10 MG PO (13:48)
[2018-03-08] MEDS ORDERED: PREDNISONE10 MG PO (13:48)
== END 2018-03-08 14:43 | disposition home or self-care (01) ==
LOC: ED 13:19
DX: B34.9 Viral infection, unspecified (principal); J44.9 Chronic obstructive pulmonary disease, unspecified; K21.9 Gastro-esophageal reflux disease without esophagitis; I10 Essential (primary) hypertension; E78.2 Mixed hyperlipidemia; F17.200 Nicotine dependence, unspecified, uncomplicated; Z88.6 Allergy status to analgesic agent; Z79.899 Other long term (current) drug therapy

== ENCOUNTER 2018-12-10 12:10 | Emergency (ER) | payer MEDICARE ==
[~2018-12-10] VITALS: Ht 154.9 cm; Wt 79.4 kg
[~2018-12-10 12:10] MED LIST changes: +DECADRON4 MG PO; +FLONASE ALLERG9.9 ML NAS; +LIPITOR40 MG PO; +PERCOCET 7.5-31 EACH PO; +TRANEXAMIC ACI PO; +TRINTELLIX20 MG PO
[2018-12-10 12:12] VITALS: BP 133/80
[2018-12-10] MEDS ORDERED: PREDNISONE50 MG PO (13:03)
[2018-12-10] MEDS ORDERED: VISTARIL25 MG PO (13:03)
== END 2018-12-10 13:05 | disposition home or self-care (01) ==
LOC: ED 12:10
DX: L40.9 Psoriasis, unspecified (principal); I10 Essential (primary) hypertension; J44.9 Chronic obstructive pulmonary disease, unspecified; Z87.891 Personal history of nicotine dependence; Z79.899 Other long term (current) drug therapy; Z88.6 Allergy status to analgesic agent; Z93.2 Ileostomy status

== ENCOUNTER 2019-05-18 17:07 | Inpatient (IN) | payer MEDICARE ==
[~2019-05-18] VITALS: Ht 154.9 cm; Wt 80.9 kg
[2019-05-18 17:07] VITALS: BP 125/81
[~2019-05-18 17:07] MED LIST changes: +PREDNISONE50 MG PO; +VISTARIL25 MG PO
[2019-05-18] MEDS ORDERED: SUBOXONE 8 MG-1 EACH SL (17:10)
[2019-05-18 17:44] VITALS: BP 138/87
[2019-05-18 18:02] LABS: ALBUMIN 3.7 gm/dl (3.1-4.5); ALKALINE PHOSPHATASE 101 U/L (45-117); BUN 10 mg/dl (7-24); CHLORIDE 106 mmol/L (98-107); CREATININE 1.03 mg/dL (0.55-1.02); POTASSIUM 4.2 mmol/L (3.5-5.1); SGOT/AST 37 IU/L (3-35); SGPT/ALT 34 U/L (12-78); SODIUM 140 mmol/L (136-145); TOTAL PROTEIN 7.3 gm/dL (6.4-8.2)
[2019-05-18 18:25] VITALS: BP 106/52
--- NOTE | 2019-05-18 18:31 | NUR ---
PT W/O ADDITIONAL COMPLAINTS VOICED AND NO N/V NOTED WHILE IN ED,FAMILY @ BEDSIDE AND CALL LIGHT WITHIN REACH.
--- NOTE | 2019-05-18 18:40 | NUR ---
PO FLUIDS PROVIDED.
[2019-05-18 18:42] LABS: HEMATOCRIT 39.5 % (37.0-47.0); HEMOGLOBIN 12.1 g/dl (12.0-16.0); MEAN CORPUSCULAR HGB CONC 30.6 g/dl (33.0-37.0); MEAN PLATELET VOLUME 12.1 fl (9.6-12.3); RED BLOOD COUNT 4.03 10*6/uL (4.10-5.10); RED CELL DISTRI WIDTH 14.5 % (0-14.5); WHITE BLOOD COUNT 9.5 10*3/uL (4.8-10.8)
[2019-05-18 18:44] LABS: PLATELET COUNT AUTOMATED 25 10*3/uL (130-400)
--- NOTE | 2019-05-18 18:46 | NUR ---
PT AWARE THAT REQUIRE A URINE SAMPLE FOR ANALYSIS,UNABLE TO PROVIDE @ THIS TIME,AISLINN NICOLE NOTIFIED.
[2019-05-18 19:05] LABS: TOTAL CELLS COUNTED 100 #CELLS
[2019-05-18 19:06] LABS: PLATELET SUFFICIENCY NORMAL (NORMAL)
--- NOTE | 2019-05-18 19:19 | NUR ---
PT STATING "CAN USE MY OXYGEN DURING THE DAY IF I NEED IT BUT USUALLY AT NIGHT", PT W/O ACUTE DISTRESS NOTED @ THIS TIME,FAMILY @ BEDSIDE.
[2019-05-18 19:33] VITALS: BP 128/70
[2019-05-18 19:35] LABS: BILIRUBIN NEGATIVE (NEGATIVE); BLOOD 2+ (NEGATIVE); CLARITY SL CLOUDY (CLEAR); COLOR YELLOW (YELLOW); GLUCOSE NEGATIVE (NEGATIVE); KETONE NEGATIVE (NEGATIVE); LEUKO ESTERASE TRACE (NEGATIVE); NITRITE NEGATIVE (NEGATIVE); SPECIFIC GRAVITY >= 1.030 (1.005-1.030); UROBILINOGEN 0.2 E.U./dl (0.2-1.0)
[2019-05-18 19:43] LABS: URINE AMPHETAMINES < 1000 (1000ng/ml); URINE BARBITURATES < 200 (200ng/ml); URINE BENZODIAZEPINES < 200 (200ng/ml); URINE CANNABINOIDS (THC) < 50 (50ng/ml); URINE COCAINE < 300 (300ng/ml); URINE METHADONE < 300 (300ng/ml); URINE OPIATES < 300 (300ng/ml)
[2019-05-18 19:51] LABS: URINE PHENCYCLIDINE < 25 (25ng/ml)
[2019-05-18 19:54] LABS: EPITHELIAL CELLS TNTC; WBC 0-2 wbc/hpf (0-5)
[2019-05-18 19:55] LABS: BACTERIA 2+; MUCOUS TRACE
[2019-05-18 20:40] VITALS: BP 111/60
--- NOTE | 2019-05-18 20:40 | NUR ---
A 63, admitted to 4E, under the services of JOLLY Bullard DO with a diagnosis of INTRACTABLE NAUSEA AND VOMITING GEN WEAKNESS. Chief complaint is VOMITING. Patient arrived via stretcher from ER. Monitor applied. Initial assessment completed. Vital signs taken and recorded. JOLLY BULLARD DO notified of admission to the unit. Orders received. See assessment for past medical history, medications and allergies. Patient and/or family oriented to unit. [facility] visitation policy reviewed. Clothing/patient valuable form completed. DELTA GUZMAN
[2019-05-18] MEDS ORDERED: QUETIAPINE FUMA25 M1 PO (20:43)
[2019-05-18] MEDS ORDERED: LISINOPRIL10 M1 PO (20:44)
[2019-05-18] MEDS ORDERED: PANTOPRAZOLE SO40 MG PO (20:45)
[2019-05-18] MEDS ORDERED: COSENTYX P150 MG/11 SQ (20:46)
[2019-05-18] MEDS ORDERED: OMNICEF300 MG PO (20:47)
--- NOTE | 2019-05-18 21:06 | NUR ---
PATIENT GIVEN ZOFRAN FOR NAUSEA RIGHT BEFORE EATING CRACKERS A SANDWICH AMD ICE CREAM. PATIENT THEN COMPLAINED 30 MINUTES LATER THAT SHE WAS SICK .
[2019-05-19] VITALS: BP 116/54
--- NOTE | 2019-05-19 00:37 | NUR ---
PATIENT IS SLEPPING NOW. NO SIGNS OF DISTRESS AND HAS HAD NO VOMITING SINCE BEING ADMITTED.
--- NOTE | 2019-05-19 05:19 | NUR ---
PATIENT WOKE UP WHEN I ENTERED HER ROOM TO DRAW LABS PATIENT HAD BEEN SLEEPING ALL NIGHT AND SNORING. WHEN SHE WOKE UP SHE SAID SHE FELT TERRIBLE AND THAT SHE WANTED SOMETHING FOR NAUSEA. ZOFRAN WAS GIVEN AT THIS TIME. PATIENT WAS BACK TO SLEEP AND SNORING BEFORE I COULD FINISH ADMINSTERING THE MEDICATION.
[2019-05-19 06:26] LABS: HEMATOCRIT 39.4 % (37.0-47.0); HEMOGLOBIN 11.7 g/dl (12.0-16.0); MEAN CORPUSCULAR HGB 29.7 pg (27.0-31.0); MEAN CORPUSCULAR HGB CONC 29.7 g/dl (33.0-37.0); MEAN PLATELET VOLUME 14.5 fl (9.6-12.3); RED BLOOD COUNT 3.94 10*6/uL (4.10-5.10); RED CELL DISTRI WIDTH 14.6 % (0-14.5); WHITE BLOOD COUNT 8.8 10*3/uL (4.8-10.8)
[2019-05-19 06:31] LABS: PLATELET COUNT AUTOMATED 27 10*3/uL (130-400)
[2019-05-19 06:47] LABS: ALBUMIN 3.2 gm/dl (3.1-4.5); ALKALINE PHOSPHATASE 84 U/L (45-117); BUN 9 mg/dl (7-24); CHLORIDE 109 mmol/L (98-107); CHOLESTEROL 121 mg/dL (<200); CREATININE 0.84 mg/dL (0.55-1.02); FREE T4 0.87 ng/dl (0.76-1.46); HDL CHOLESTEROL 35 mg/dl (40-60); LDL CHOLESTEROL 58 mg/dL (9-159); PHOSPHOROUS 3.6 mg/dL (2.5-4.9); POTASSIUM 4.1 mmol/L (3.5-5.1); SGOT/AST 28 IU/L (3-35); SGPT/ALT 28 U/L (12-78); SODIUM 144 mmol/L (136-145); TOTAL PROTEIN 6.6 gm/dL (6.4-8.2); TRIGLYCERIDES 138 mg/dl (<150); VLDL CHOLESTEROL 28 mg/dL (6-40)
[2019-05-19 06:52] LABS: THYROID STIM HORMONE (HS) 0.416 uIU/ml (0.358-4.75)
[2019-05-19 07:05] LABS: PLATELET SUFFICIENCY LOW (NORMAL); POLYCHROMASIA SLIGHT; TOTAL CELLS COUNTED 100 #CELLS
--- NOTE | 2019-05-19 07:30 | NUR ---
Shift chart check completed.24 HR chart check completed. Sleeping during shift change rounds.
[2019-05-19 08:20] VITALS: BP 140/80
--- NOTE | 2019-05-19 08:42 | NUR ---
ON ASSESSMENT PATIENT WITH GRIMACED FACIES, C/O "MY HEAD GOING TO EXPLODE, MY BAG'S GOING TO EXPLODE AND I'M GOING TO THROW UP". SHE WAS ASSISTED TO EMPTY HER OSTOMY BAG. PROVIDED WITH EMESIS BAG AND DR POTTER INFORMED OF HER HEADACHE. SEE ALL APPROPRIATE INTERVENTIONS.
--- NOTE | 2019-05-19 09:30 | NUR ---
PT WAS GIVEN IMITREX FOR HER HEADACHE. CAN BE HEARD SNORING.
--- NOTE | 2019-05-19 09:48 | NUR ---
IV INFUSION RATE TITRATED TO 70/HR PER ORDER.
--- NOTE | 2019-05-19 10:33 | NUR ---
PT SAYS "NOT MUCH" RELIEF FROM THE EARLIER IMITREX. SHE ALSO REFUSED THE SUBOXONE, SAYING "I'VE BEEN SICK SINCE I STARTED TAKING IT".
--- NOTE | 2019-05-19 11:02 | NUR ---
DR POTTER INFORMED PT REFUSING HER SUBOXONE.
[2019-05-19 12:00] VITALS: BP 164/84
--- NOTE | 2019-05-19 12:13 | NUR ---
PT STATES SHE'S FEELING "JUST A TINY BIT BETTER".
--- NOTE | 2019-05-19 15:00 | NUR ---
PT HAS MOSTLY SLEPT ALL SHIFT. I HAVE STOOD AT HER BEDSIDE AND WATCHED PERIODS OF APNEA LASTING UP TO 10 SECONDS THEN SNORING WHEN SHE RESTARTS.
--- NOTE | 2019-05-19 15:15 | NUR ---
Patient resting quietly with no c/o discomfort. Respirations easy and regular. Vital signs stable. No overt distress. MONSERRAT GUTIERREZ
[2019-05-19 16:00] VITALS: BP 113/51
--- NOTE | 2019-05-19 16:15 | NUR ---
[facility] STAFF MADE ATTEMPT TO SPEAK WITH PATIENT ABOUT [facility] SERVICE. PATIENT WAS SOUND ASLEEP. [facility] STAFF WILL FOLLOW UP TOMORROW. CHANTE SHARMA B.A. SILHOUETTE ARTIST
--- NOTE | 2019-05-19 17:37 | NUR ---
PT SLEEPING, WOKEN FOR MEDS, BUT THEN FELL BACK ASLEEP
--- NOTE | 2019-05-19 19:40 | NUR ---
IGOR CAME TO NURSE AND STATED PATIENT O2 SAT IS IN THE 70'S ON 4L N/C AND IS NOT AROUSABLE. RESPIRATORY NOTIFIED AND PLACED PATIENT ON MASK AT 100%. DR. ROYAL NOTIFIED AND ORDERED ABG'S, CXR AND EKG. DR. ROYAL ALSO IN TO SEE PATIENT.
[2019-05-19 19:51] LABS: ABG BASE EXCESS 3.6 mmol/L (-2.0-2.0); ARTERIAL BLOOD GAS PH 7.205 (7.35-7.45)
[2019-05-19 20:00] VITALS: BP 134/63
--- NOTE | 2019-05-19 20:00 | NUR ---
NEW ORDER FOR BIPAP WITH SETTINGS OF 12/6 AT 40% D/C FLUIDS AND GIVE LASIX 40MG IV. OBTAIN BLOOD GASES IN 2 MORE HOURS.
--- NOTE | 2019-05-19 20:01 | NUR ---
DR. ROYAL NOTIFIED OF CRITICAL PCO2 OF 89.
[2019-05-19 22:11] LABS: ABG BASE EXCESS 6.2 mmol/L (-2.0-2.0); ARTERIAL BLOOD GAS PH 7.245 (7.35-7.45)
--- NOTE | 2019-05-19 22:13 | NUR ---
CRITICAL PCO2 OF [address] MERINO. NO NEW ORDERS AT THIS TIME
--- NOTE | 2019-05-19 22:28 | NUR ---
DR. IZAGUIRRE CONTACTED AT THIS TIME IN REGARDS TO CONSULT. ORDERED TO CHANGE BIPAP TO 20/10, WITH ABG IN THE MORNING. ALSO IF PATIENT DOES NOT RESPOND TO CHANGE TO SEND TO ICCU.
[2019-05-20] VITALS: BP 110/61
--- NOTE | 2019-05-20 05:22 | NUR ---
PATIENT'S 6AM LIBRIUM HELD D/T STILL BEING EXTREMELY DROWSY.
[2019-05-20 05:24] LABS: ARTERIAL BLOOD GAS PH 7.32 (7.35-7.45)
--- NOTE | 2019-05-20 05:41 | NUR ---
DR. IZAGUIRRE CONTACTED IN REGARDS TO ABG RESULTS, ORDERED TO CHANGE BIPAP TO 24/10 AND OBTAIN ANOTHER ABG IN 2HRS.
[2019-05-20 05:51] LABS: BUN 11 mg/dl (7-24); CHLORIDE 103 mmol/L (98-107); CREATININE 1.08 mg/dL (0.55-1.02); POTASSIUM 4.1 mmol/L (3.5-5.1); SODIUM 143 mmol/L (136-145)
--- NOTE | 2019-05-20 06:10 | NUR ---
BIPAP SETTINGS CHANGED TO 24/[address] IZAGUIRRE ORDER.
[2019-05-20 06:15] LABS: HEMATOCRIT 38.3 % (37.0-47.0); HEMOGLOBIN 11.1 g/dl (12.0-16.0); MEAN CELL VOLUME 100.8 fl (81.0-99.0); MEAN CORPUSCULAR HGB 29.2 pg (27.0-31.0); RED CELL DISTRI WIDTH 14.6 % (0-14.5); WHITE BLOOD COUNT 8.3 10*3/uL (4.8-10.8)
[2019-05-20 06:22] LABS: PLATELET COUNT AUTOMATED 26 10*3/uL (130-400)
--- NOTE | 2019-05-20 06:30 | NUR ---
DR. MERINO NOTIIFED OF CRITICAL PLATELETS OF 26.
[2019-05-20 07:00] LABS: TOTAL CELLS COUNTED 100 #CELLS
[2019-05-20 07:01] LABS: PLATELET SUFFICIENCY LOW (NORMAL); POLYCHROMASIA SLIGHT; STOMATOCYTE FEW
[2019-05-20 07:34] LABS: ABG BASE EXCESS 7.6 mmol/L (-2.0-2.0); ARTERIAL BLOOD GAS PH 7.248 (7.35-7.45)
--- NOTE | 2019-05-20 07:38 | NUR ---
RESP THERAPY IN ROOM TO DRAW AB'S CATALINA MOHAMUD SPANGELCC
--- NOTE | 2019-05-20 07:42 | NUR ---
Patient was verbally responsive when spoken to during morning assessment but falls asleep after. vitals WNL. No peripheral edema noted. Rose DAVIS
[2019-05-20 07:45] VITALS: BP 132/70
--- NOTE | 2019-05-20 07:47 | NUR ---
RESP THERAPY IN ROOM AND CHANGED BI-PAP SETTINGS, ABG'S TO BE REPEATED IN 2 HOURS CATALINA DAVIS
--- NOTE | 2019-05-20 09:09 | NUR ---
DR. IZAGUIRRE IN TO SEE PT, BIPAP SETTINGS CHANGED, TRANSFERED TO ICCU PER DR. KIRBY, PT TALKS AND ANSWERS QUESTIONS BUT FALLS BACK TO SLEEP QUICKLY CATALINA MOHAMUD SPNRCC
--- NOTE | 2019-05-20 09:21 | NUR ---
PATIENT DAUGHTER AND AWARE OF TRANSFER WELL DR. POTTER. NURSE TO LOUISEGiovanna GIVEN.
--- NOTE | 2019-05-20 09:45 | NUR ---
ASSUMED CARE FROM TO[facility]A SHAH. PATIENT IS LETHARGIC AND ONLY AROUSES WHEN STERNALLY RUBBED BY STAFF AND ONLY OPENS EYES FOR A FEW SECONDS AND THEN BECOMES UNRESPONSIVE AGAIN. PATIENTS RESPIRATIONS ARE SNOROUS ON THE BIPAP AT 16/10. PATIENT HAS MULTIPLE PILL BOTTLES EMPTY FOUND IN HER BELONGINGS. MEDICATIONS SENT HOME WITH FAMILY MEMBER.
[2019-05-20 11:08] LABS: URINE AMPHETAMINES < 1000 (1000ng/ml); URINE BARBITURATES < 200 (200ng/ml); URINE BENZODIAZEPINES > 200 (200ng/ml); URINE CANNABINOIDS (THC) < 50 (50ng/ml); URINE COCAINE < 300 (300ng/ml); URINE METHADONE < 300 (300ng/ml); URINE OPIATES < 300 (300ng/ml)
[2019-05-20 11:09] LABS: URINE PHENCYCLIDINE < 25 (25ng/ml)
[2019-05-20 11:27] LABS: ARTERIAL BLOOD GAS PH 7.261 (7.35-7.45)
[2019-05-20 11:57] LABS: HEMATOCRIT 40.6 % (37.0-47.0); HEMOGLOBIN 11.9 g/dl (12.0-16.0); MEAN CELL VOLUME 100.5 fl (81.0-99.0); MEAN CORPUSCULAR HGB 29.5 pg (27.0-31.0); MEAN CORPUSCULAR HGB CONC 29.3 g/dl (33.0-37.0); MEAN PLATELET VOLUME 13.4 fl (9.6-12.3); RED BLOOD COUNT 4.04 10*6/uL (4.10-5.10); RED CELL DISTRI WIDTH 14.4 % (0-14.5); WHITE BLOOD COUNT 7.7 10*3/uL (4.8-10.8)
[2019-05-20 12:00] VITALS: BP 126/62
[2019-05-20 12:00] LABS: PLATELET COUNT AUTOMATED 25 10*3/uL (130-400)
--- NOTE | 2019-05-20 12:00 | NUR ---
JACINTO INSERTED AT THIS TIME SINCE PATIENT IS HARD TO AROUSE AND ACCURATE I&O NEEDED. 600CC RECEIVED UPON INSERTION. PATIENT TOLERATED WELL.
[2019-05-20 12:12] LABS: ALBUMIN 3.6 gm/dl (3.1-4.5); ALKALINE PHOSPHATASE 87 U/L (45-117); BUN 12 mg/dl (7-24); CHLORIDE 102 mmol/L (98-107); CREATININE 1.02 mg/dL (0.55-1.02); POTASSIUM 4.1 mmol/L (3.5-5.1); SGOT/AST 29 IU/L (3-35); SGPT/ALT 29 U/L (12-78); SODIUM 143 mmol/L (136-145)
[2019-05-20 12:15] LABS: TROPONIN I < 0.015 ng/ml (<0.045)
[2019-05-20 12:16] LABS: PLATELET SUFFICIENCY LOW (NORMAL); POLYCHROMASIA SLIGHT; STOMATOCYTE MODERATE; TOTAL CELLS COUNTED 100 #CELLS
--- NOTE | 2019-05-20 12:50 | NUR ---
PATIENT TAKEN DOWN FOR CT SCAN OF ABD/PELVIS VIA CART.
--- NOTE | 2019-05-20 13:30 | NUR ---
PATIENT RETURNED FROM RADIOLOGY. PATIENT PLACED BACK ON BIPAP AT THIS TIME.
[2019-05-20 14:58] LABS: ABG BASE EXCESS 9.3 mmol/L (-2.0-2.0); ARTERIAL BLOOD GAS PH 7.302 (7.35-7.45)
--- NOTE | 2019-05-20 15:10 | NUR ---
DR. IZAGUIRRE NOTIFIED OF ABG RESULTS. ORDERS RECEIVED FOR BIPAP 30/12 AND ABG'S IN 2 HOUR.
[2019-05-20 16:00] VITALS: BP 89/56
[2019-05-20 17:14] LABS: ABG BASE EXCESS 9.2 mmol/L (-2.0-2.0); ARTERIAL BLOOD GAS PH 7.349 (7.35-7.45)
--- NOTE | 2019-05-20 19:23 | NUR ---
Shift chart check completed.24 HR chart check completed.
[2019-05-20 20:00] VITALS: BP 121/71
--- NOTE | 2019-05-20 20:00 | NUR ---
PT RESTING ON BED WITH EASY RESPIRATIONS AT THIS TIME. NO DISTRESS NOTED. PT REPORTS SOME MILD DROWSINESS BUT ABLE TO ANSWER ALL QUESTIONS APPROPRIATELY. NSS INFUSING WITHOUT DIFFICULTY. JACINTO CATHETER IN PLACED DRAINING CLEAR YELLOW URINE. ILEOSTOMY BAG EMPTIED WITH LIQUID BLACK STOOL 300ML. SCDs AND ANTONIA HOSE IN PLACE. PT DENIES ANY PAIN AT THIS TIME.
--- NOTE | 2019-05-20 20:04 | NUR ---
24 HR chart check completed.
--- NOTE | 2019-05-20 21:10 | NUR ---
PT REQUESTED TO HAVE BIPAP OFF. RESPIRATORY AWARE. PT PLACED ON 2L NC. STABLE AT THIS TIME. ALERT AND ORIENTED. PT REPORTS SOME ONGOING HEAD FOG. ABLE TO ANSWER QUESTIONS ACCORDINGLY.
[2019-05-20 21:48] LABS: BLOOD 1+ (NEGATIVE); CLARITY CLEAR (CLEAR); COLOR YELLOW (YELLOW); SPECIFIC GRAVITY 1.025 (1.005-1.030)
[2019-05-20 21:49] LABS: BILIRUBIN NEGATIVE (NEGATIVE); GLUCOSE NEGATIVE (NEGATIVE); KETONE NEGATIVE (NEGATIVE); LEUKO ESTERASE NEGATIVE (NEGATIVE); NITRITE NEGATIVE (NEGATIVE); UROBILINOGEN 0.2 E.U./dl (0.2-1.0)
[2019-05-20 21:50] LABS: BACTERIA 2+; EPITHELIAL CELLS 0-2
--- NOTE | 2019-05-20 21:52 | NUR ---
PT BECOMING SLIGHTLY CONFUSED AT THIS TIME. ABLE TO ANSWER QUESTIONS BUT IS BECOMING MORE DISORIENTED. PT GIVEN CALL LIGHT AND CELL PHONE PER REQUEST. REORIENTED TO ROOM AND SURROUNDINGS. RESPIRATIONS EASY AND NON LABORED.
--- NOTE | 2019-05-20 22:11 | NUR ---
PT RESTING QUIETLY TALKING TO ON PHONE. PLEASANTLY DISORIENTED AT THIS TIME. ABLE TO ANSWERS QUESTIONS. SLIGHT DISORIENTATION. PT GIVEN CALL LIGHT AND ORIENTATED TO ROOM.
--- NOTE | 2019-05-20 22:40 | NUR ---
PT PLACED BACK ON BIPAP. PT RESTING QUIETLY. NO DISTRESS NOTED.
--- NOTE | 2019-05-20 23:24 | NUR ---
PT SLEEPING EASILY WITH HER BIPAP MASK ON AT THIS TIME. HAD VISTARIL EARLIER FOR ANXIETY AND THIS APPEARS TO BE EFFECTIVE. HER BED IS IN LOW POSITION WITH WHEELS LOCKED AND BED EXIT ALARM ACTIVATED. JACINTO PATENT SANDEE URINE. IV FLUIDS CONTINUE AT 80/HR. EARLIER SHE HAD HER PURSE IN THE BED WITH HER AND CIGARETTES WERE SEEN. SHE GAVE ME PERMISSION TO TAKE THEM FROM THE ROOM. ANTONIA'S/SCD'S IN PLACE. SEE ALL APPROPRIATE INTERVENTIONS.
[2019-05-21] VITALS: BP 106/57
[2019-05-21 04:00] VITALS: BP 110/69
--- NOTE | 2019-05-21 05:26 | NUR ---
AWAKENED FOR BLOOD DRAW FROM [facility] FOR THE LAB. ILEOSTOMY CARE, BIPAP OFF FOR A DRINK OF WATER AND AM MED. ASSISTED TO POSITION OF COMFORT AND APPEARS TO BE SLEEPING AGAIN.
[2019-05-21 05:30] LABS: CREATININE 1.13 mg/dL (0.55-1.02)
[2019-05-21 06:08] LABS: HEMATOCRIT 37.8 % (37.0-47.0); HEMOGLOBIN 11.2 g/dl (12.0-16.0); MEAN CELL VOLUME 98.4 fl (81.0-99.0); MEAN CORPUSCULAR HGB 29.2 pg (27.0-31.0); MEAN CORPUSCULAR HGB CONC 29.6 g/dl (33.0-37.0); RED BLOOD COUNT 3.84 10*6/uL (4.10-5.10); RED CELL DISTRI WIDTH 14.4 % (0-14.5)
[2019-05-21 06:16] LABS: PLATELET COUNT AUTOMATED 33 10*3/uL (130-400)
[2019-05-21 06:59] LABS: ABG BASE EXCESS 6.1 mmol/L (-2.0-2.0); ARTERIAL BLOOD GAS PH 7.396 (7.35-7.45)
[2019-05-21 07:20] LABS: PLATELET SUFFICIENCY LOW (NORMAL); TOTAL CELLS COUNTED 100 #CELLS
[2019-05-21 07:22] LABS: POLYCHROMASIA SLIGHT
[2019-05-21 08:00] VITALS: BP 117/54
--- NOTE | 2019-05-21 11:16 | NUR ---
PT TRANSFER TO ROOM 405 BED 2 VIA CHAIR.
--- NOTE | 2019-05-21 11:35 | NUR ---
pt refused to wear bipap at this time she states she has a headache and she wants to order lunch. i ask her if she wanted to wear it till her lunch came and she refused. rn notified
[2019-05-21 12:00] VITALS: BP 119/67
--- NOTE | 2019-05-21 14:40 | NUR ---
PT REQUESTED AND GIVEN TYLENOL FOR C/O HEADACHE WILL MONITOR
--- NOTE | 2019-05-21 14:47 | NUR ---
PT REQUESTED AND GIVEN ZOFRAN FOR C/O NAUSEA. WILL MONITOR
--- NOTE | 2019-05-21 15:22 | NUR ---
[place] STAFF SPOKE TO PATIENT ABOUT NEW VISION SERVICES AND AFTERCARE CARE. PATIENT WAS NOT INTERESTED IN SERVICES. [place] STAFF PROVIDED PATIENT WITH NH CONTACT INFORMATION. CHANTE SHARMA B.A. SAP TRAINER
[2019-05-21 16:00] VITALS: BP 99/57
[2019-05-21 20:00] VITALS: BP 94/60
[2019-05-22] VITALS: BP 84/43
[2019-05-22 06:53] LABS: HEMATOCRIT 34.4 % (37.0-47.0); HEMOGLOBIN 10.5 g/dl (12.0-16.0); MEAN CELL VOLUME 97.5 fl (81.0-99.0); MEAN CORPUSCULAR HGB 29.7 pg (27.0-31.0); MEAN CORPUSCULAR HGB CONC 30.5 g/dl (33.0-37.0); MEAN PLATELET VOLUME 14.3 fl (9.6-12.3); RED BLOOD COUNT 3.53 10*6/uL (4.10-5.10); RED CELL DISTRI WIDTH 14.9 % (0-14.5)
[2019-05-22 06:56] LABS: PLATELET COUNT AUTOMATED 28 10*3/uL (130-400)
[2019-05-22 07:01] LABS: BUN 27 mg/dl (7-24); CHLORIDE 106 mmol/L (98-107); CREATININE 1.05 mg/dL (0.55-1.02); POTASSIUM 4.3 mmol/L (3.5-5.1); SODIUM 143 mmol/L (136-145)
[2019-05-22 07:16] LABS: PLATELET SUFFICIENCY LOW (NORMAL); POLYCHROMASIA SLIGHT; TOTAL CELLS COUNTED 100 #CELLS
--- NOTE | 2019-05-22 07:33 | NUR ---
Shift chart check completed.
--- NOTE | 2019-05-22 09:00 | NUR ---
[place] OUT - MONITOR DC'D - IVF STOPPED. DR PRITCHARD ROUNDED - ANTIBIOTICS ADJUSTED. AMB TO BATHROM TIGHT NONPROD COUGH WITH AMBULATION - C/O STOMACH UPSET/OCC NAUSEA/ & BACK PAIN TO DR PRITCHARD
--- NOTE | 2019-05-22 09:00 | NUR ---
Lumber Inspector in to talk to patient. Patient states lives at home with . There are no steps in the home. Physician: fallon dowling [facility] Home health services: none Patient's level of ADLs: INDEPENDENT Patient has working utilities: all working DME: home oxygenm portable tanks from [facility] [facility] Follow-up physician's appointment after d/c: will be made by [facility] nurse director upon discharge Does patient want to access PORTAL?: no Discharge plan discussed with patient, she states she lives at home, is independent in adls and ambualtion, she states she will return home when medically stable and denies any home needs, case management will follow. BARBARA LOZA
[2019-05-22 12:00] VITALS: BP 114/58
--- NOTE | 2019-05-22 14:33 | NUR ---
O2 HUMIDIFIED - IV ZOFRAN FOR C/O MILD NAUSEA AFTER EATING
--- NOTE | 2019-05-22 15:28 | NUR ---
MED WITH VISTARIL FOR ANXIETY, TYLENOL & REQUIP FOR ACHES & RESTLESSNESS IN LEGS & SALINE FOR DRY NOSE DESPITE HUMIDIFICATION. PATIENT ADMITS TO INCREASING AGGITATION & ANXIETY THE DAY GOES ON. PRN MEDS DISCUSSED
--- NOTE | 2019-05-22 15:38 | NUR ---
Was asked to arrange a Non-Invasive bipap for patient at home. Sent information to [facility] for them to review and see if patient would qualify for NIV. [facility] notified me that patient does not qualify for an NIV but would need a nocturnal pulse ox to possibly be approved for a bipap. Notified case management, and Dr. Martinez.
[2019-05-22 16:00] VITALS: BP 121/59
--- NOTE | 2019-05-22 16:46 | NUR ---
ROBAXIN GIVEN FOR CONTINUED RESTLESSNESS WITH MINIMAL RELOEF FROM EARLIER MEDS
--- NOTE | 2019-05-22 18:30 | NUR ---
Patient resting. Responding to scheduled medications with fewer complaints of pain and anxiety.
[2019-05-22 20:00] VITALS: BP 112/57
--- NOTE | 2019-05-22 22:43 | NUR ---
MEDICATED WITH ROBAXIN FOR MUSCLE ACHES & RESTORIL FOR INSOMNIA.
[2019-05-23] VITALS: BP 144/65
[2019-05-23 06:53] LABS: HEMATOCRIT 33.6 % (37.0-47.0); MEAN CELL VOLUME 98.2 fl (81.0-99.0); MEAN CORPUSCULAR HGB 29.2 pg (27.0-31.0); MEAN CORPUSCULAR HGB CONC 29.8 g/dl (33.0-37.0); RED BLOOD COUNT 3.42 10*6/uL (4.10-5.10); RED CELL DISTRI WIDTH 15.2 % (0-14.5)
[2019-05-23 06:57] LABS: PLATELET COUNT AUTOMATED 23 10*3/uL (130-400)
--- NOTE | 2019-05-23 06:59 | NUR ---
NOTIFIED DR. BAUTISTA OF CRITICAL PLATELET LEVEL. DR. BAUTISTA STATED THAT SHE WOULD PASS IT ON TO DAYLIGHT.
[2019-05-23 07:18] LABS: BUN 23 mg/dl (7-24); CHLORIDE 108 mmol/L (98-107); POTASSIUM 4.3 mmol/L (3.5-5.1); SODIUM 144 mmol/L (136-145)
[2019-05-23 07:42] LABS: TOTAL CELLS COUNTED 100 #CELLS
[2019-05-23 07:43] LABS: PLATELET SUFFICIENCY LOW (NORMAL)
[2019-05-23 08:00] VITALS: BP 138/79
--- NOTE | 2019-05-23 09:11 | NUR ---
PT REQUESTED AND RECEIVED PO VISTARIL AND REQUIP PER PRN ORDER FOR C/O ANXIETY AND RESTLESS LEGS. WILL MONITOR EFFECTIVENESS.
--- NOTE | 2019-05-23 10:30 | NUR ---
Patient resting. Responding to scheduled medications with fewer complaints of pain and anxiety.
[2019-05-23 12:00] VITALS: BP 138/72
--- NOTE | 2019-05-23 15:02 | NUR ---
PT REQUESTED PO VISTARIL PER PRN ORDER FOR C/O ANXIETY. WILL MONITOR EFFECTIVENESS. CALL LIGHT WITHIN REACH.
[2019-05-23 16:00] VITALS: BP 148/70
--- NOTE | 2019-05-23 16:30 | NUR ---
Patient resting. Responding to scheduled medications with fewer complaints of pain and anxiety.
--- NOTE | 2019-05-23 17:40 | NUR ---
PT GIVEN PO BENTYL, CATAPRESS, REQUIP, ROBAXIN AND ZOFRAN PER PRN ORDER FOR C/O MUSCLE ACHES, STOMACH CRAMPS, HOT/COLD SWEATS, RESTLESS LEGS AND NAUSEA. WILL MONITOR EFFECTIVENESS.
[2019-05-23 20:00] VITALS: BP 130/64
--- NOTE | 2019-05-23 20:00 | NUR ---
PT. STATES MEDICATIONS GIVEN EARLIER EFFECTIVE. CALL LIGHT WITHIN REACH.
--- NOTE | 2019-05-23 23:45 | NUR ---
PATIENT PLACED ON NOCTURNAL PULSE OX AT 2220 PM.
[2019-05-24] VITALS: BP 136/71
--- NOTE | 2019-05-24 04:00 | NUR ---
RESTING IN BED WITH EYES CLOSED. CALL LIGHT WITHIN REACH.
--- NOTE | 2019-05-24 06:00 | NUR ---
AROUSES EASILY FO PO MEDICATION. VOICES NO C/O AT THIS TIME. CALL LIGHT WITHIN REACH.
[2019-05-24 06:51] LABS: HEMATOCRIT 33.7 % (37.0-47.0); HEMOGLOBIN 10.3 g/dl (12.0-16.0); MEAN CELL VOLUME 96.3 fl (81.0-99.0); MEAN CORPUSCULAR HGB 29.4 pg (27.0-31.0); MEAN CORPUSCULAR HGB CONC 30.6 g/dl (33.0-37.0); RED CELL DISTRI WIDTH 15.2 % (0-14.5); WHITE BLOOD COUNT 5.6 10*3/uL (4.8-10.8)
[2019-05-24 06:53] LABS: PLATELET COUNT AUTOMATED 21 10*3/uL (130-400)
[2019-05-24 07:24] LABS: OVALOCYTES MODERATE; PLATELET SUFFICIENCY LOW (NORMAL); POLYCHROMASIA SLIGHT; TOTAL CELLS COUNTED 100 #CELLS
[2019-05-24 07:25] LABS: BUN 20 mg/dl (7-24); CHLORIDE 108 mmol/L (98-107); CREATININE 1.03 mg/dL (0.55-1.02); POTASSIUM 4.2 mmol/L (3.5-5.1); SODIUM 141 mmol/L (136-145)
--- NOTE | 2019-05-24 07:30 | NUR ---
DR PRITCHARD HERE TO ASSESS PATIENT AND DISCUSS PLAN OF CARE
[2019-05-24 08:00] VITALS: BP 148/80
[2019-05-24 08:20] LABS: ABG BASE EXCESS 6.3 mmol/L (-2.0-2.0); ARTERIAL BLOOD GAS PH 7.487 (7.35-7.45)
--- NOTE | 2019-05-24 08:33 | NUR ---
24 HR chart check completed.
--- NOTE | 2019-05-24 09:00 | NUR ---
Patient does not qualify for home oxygen during ambulation. Pre-Ambulation - BP:144/66, HR: 99, SPO2: 95% on Room Air. Ambulation - HR: 99-110, SPO2: 93%-96%, Patient ambulated for 5 minutes under own power. No complaints of dizziness, unsteadiness, or SOB. Post-Ambulation - BP:169/87, HR: 109, SPO2: 95%
--- NOTE | 2019-05-24 09:00 | NUR ---
RESTING IN BED, NO ACUTE DISTRESS NOTED. RESPIRATIONS EASY. LUNGS DIMINISHED. PULSE OX 98% RA. ABD SOFT WITH NORMO BS, OSTOMY PATENT. TRACE BLE EDEMA WITH TEDS IN PLACE. CALL LIGHT WITHIN REACH. NO VOICED COMPLAINTS
[2019-05-24] MEDS ORDERED: PREDNISONE10 MG PO (09:01)
[2019-05-24] MEDS ORDERED: LISINOPRIL20 MG PO (09:01)
--- NOTE | 2019-05-24 09:20 | NUR ---
MEDICATED WITH VISTARIL, ROBAXIN, AND REQUIP TO ASSIST WITH COMPLAINTS OF "RESTLESSNESS AND ANXIETY." CALL LIGHT WITHIN REACH. WILL MONITOR
--- NOTE | 2019-05-24 10:30 | NUR ---
Patient resting. Responding to scheduled medications with fewer complaints of pain and anxiety.
--- NOTE | 2019-05-24 13:15 | NUR ---
Discharge instructions reviewed with patient/family. Patient receptive and verbalizes understanding. Follow-up care arranged. Written instructions given to patient/family. PATIENT OFFERED W/C FOR D/C, DECLINED. AMBULATED OFF FLOOR IN CARE OF . NO VOICED COMPLAINTS DEBBY SUNG
[2019-05-25] MEDS ORDERED: VITAMIN D32000 UNI1 PO (20:48)
[2019-05-25] MEDS ORDERED: HYDROXYZINE PAM25 M1 PO (20:49)
== END 2019-05-24 13:15 | disposition home or self-care (01) | DRG 871 ==
LOC: ED 17:07 → 4E 19:51 → EDHOLD 19:51 → 5E 19:51 → EDHOLD 20:00 → 4E 20:06 → ICCU 05-20 09:26 → 4E 05-21 11:24 → 5E 05-22 17:35
PROVIDERS: Family Medicine; Internal Medicine; Internal Medicine Critical Care Medicine; Nurse Practitioner Family; Student in an Organized Health Care Education/Training Program; ADMIT Internal Medicine
PROC: 5A09457 Assistance with Respiratory Ventilation, 24-96 Consecutive Hours, Continuous Positive Airway Pressure (ICD-10-PCS; principal; 2019-05-19)
PROC: 5A09357 Assistance with Respiratory Ventilation, Less than 24 Consecutive Hours, Continuous Positive Airway Pressure (ICD-10-PCS; 2019-05-22)
PROC: 5A09357 Assistance with Respiratory Ventilation, Less than 24 Consecutive Hours, Continuous Positive Airway Pressure (ICD-10-PCS; 2019-05-23)
DX: A41.9 Sepsis, unspecified organism (principal); G93.41 Metabolic encephalopathy; J96.22 Acute and chronic respiratory failure with hypercapnia; J96.21 Acute and chronic respiratory failure with hypoxia; F11.23 Opioid dependence with withdrawal; N39.0 Urinary tract infection, site not specified; J44.1 Chronic obstructive pulmonary disease with (acute) exacerbation; R17 Unspecified jaundice; D68.0 Von Willebrand disease; D69.3 Immune thrombocytopenic purpura; E87.3 Alkalosis; J98.11 Atelectasis; M47.9 Spondylosis, unspecified; D63.8 Anemia in other chronic diseases classified elsewhere; F17.210 Nicotine dependence, cigarettes, uncomplicated; K21.9 Gastro-esophageal reflux disease without esophagitis; E55.9 Vitamin D deficiency, unspecified; I71.4 Abdominal aortic aneurysm, without rupture; L40.4 Guttate psoriasis; I12.9 Hypertensive chronic kidney disease with stage 1 through stage 4 chronic kidney disease, or unspecified chronic kidney disease; F32.9 Major depressive disorder, single episode, unspecified; R91.1 Solitary pulmonary nodule; B96.89 Other specified bacterial agents as the cause of diseases classified elsewhere; R65.20 Severe sepsis without septic shock; Z96.1 Presence of intraocular lens; E78.5 Hyperlipidemia, unspecified; N18.3 Chronic kidney disease, stage 3 (moderate); G47.33 Obstructive sleep apnea (adult) (pediatric); E86.0 Dehydration; R73.9 Hyperglycemia, unspecified; R74.0 Nonspecific elevation of levels of transaminase and lactic acid dehydrogenase [LDH]; Z71.6 Tobacco abuse counseling; Z99.81 Dependence on supplemental oxygen; Z90.49 Acquired absence of other specified parts of digestive tract; Z98.891 History of uterine scar from previous surgery; Z98.42 Cataract extraction status, left eye; Z98.41 Cataract extraction status, right eye; Z98.51 Tubal ligation status; Z83.2 Family history of diseases of the blood and blood-forming organs and certain disorders involving the immune mechanism; Z80.1 Family history of malignant neoplasm of trachea, bronchus and lung; Z88.6 Allergy status to analgesic agent; Z79.899 Other long term (current) drug therapy; Z93.2 Ileostomy status; Z80.0 Family history of malignant neoplasm of digestive organs; Z83.3 Family history of diabetes mellitus

== ENCOUNTER 2019-05-25 15:01 | Inpatient (IN) | payer MEDICARE ==
[~2019-05-25] VITALS: Ht 154.9 cm; Wt 81.9 kg
[~2019-05-25 15:01] MED LIST changes: +COSENTYX P150 MG/11 SQ; +LISINOPRIL10 M1 PO; +LISINOPRIL20 MG PO; +OMNICEF300 MG PO; +PANTOPRAZOLE SO40 MG PO; +QUETIAPINE FUMA25 M1 PO; +SUBOXONE 8 MG-1 EACH SL
[2019-05-25 15:08] VITALS: BP 142/75
[2019-05-25 15:40] LABS: HEMATOCRIT 39.9 % (37.0-47.0); HEMOGLOBIN 12.8 g/dl (12.0-16.0); MEAN CELL VOLUME 94.1 fl (81.0-99.0); MEAN CORPUSCULAR HGB 30.2 pg (27.0-31.0); MEAN CORPUSCULAR HGB CONC 32.1 g/dl (33.0-37.0); MEAN PLATELET VOLUME 14.3 fl (9.6-12.3); NUCLEATED RED BLOOD CELL 0.2 % (0.0-0.0); RED BLOOD COUNT 4.24 10*6/uL (4.10-5.10); WHITE BLOOD COUNT 9.4 10*3/uL (4.8-10.8)
[2019-05-25 15:42] LABS: PLATELET COUNT AUTOMATED 46 10*3/uL (130-400)
[2019-05-25 15:47] LABS: ACT PARTIAL THROMBO TIME 24.4 SECONDS (20.0-32.1); INTERNATIONAL NORM RATIO 1.1 (2.0-3.5)
[2019-05-25 15:55] LABS: ALBUMIN 3.4 gm/dl (3.1-4.5); ALKALINE PHOSPHATASE 86 U/L (45-117); BUN 19 mg/dl (7-24); CHLORIDE 101 mmol/L (98-107); CREATININE 1.35 mg/dL (0.55-1.02); POTASSIUM 3.8 mmol/L (3.5-5.1); SGOT/AST 81 IU/L (3-35); SGPT/ALT 56 U/L (12-78); SODIUM 137 mmol/L (136-145); TOTAL PROTEIN 6.5 gm/dL (6.4-8.2)
[2019-05-25 15:59] LABS: TROPONIN I < 0.015 ng/ml (<0.045)
[2019-05-25 16:03] LABS: PLATELET SUFFICIENCY LOW (NORMAL); TOTAL CELLS COUNTED 100 #CELLS
[2019-05-25 16:04] LABS: POLYCHROMASIA SLIGHT
[2019-05-25 20:38] VITALS: BP 135/66
--- NOTE | 2019-05-25 20:38 | NUR ---
A 63, admitted to , under the services of MAZIN Ponce DO with a diagnosis of CHEST PAIN. Chief complaint is CHEST PAIN. Patient arrived via stretcher from ER. Monitor applied. Initial assessment completed. Vital signs taken and recorded. MAZIN PONCE DO notified of admission to the unit. Orders received. See assessment for past medical history, medications and allergies. Patient and/or family oriented to unit. [facility] Clothing/patient valuable form completed. ALFREDO NUNEZ
[2019-05-25] MEDS ORDERED: VITAMIN D32000 UNI1 PO (20:48)
[2019-05-25] MEDS ORDERED: HYDROXYZINE PAM25 M1 PO (20:49)
--- NOTE | 2019-05-25 20:57 | NUR ---
MED REC COMPLETED WITH PATIENT ALERT AND ORIENTED
--- NOTE | 2019-05-25 21:00 | NUR ---
DR MERINO AWARE OF MED REC BEING COMPLETE
--- NOTE | 2019-05-25 21:26 | NUR ---
DR CERNA'S ANSWERING SERVICE AWARE OF CONSULT
--- NOTE | 2019-05-25 21:28 | NUR ---
DR MERINO STATES TO CHANGE STRESS TEST DATE FOR TOMORROW
--- NOTE | 2019-05-25 22:49 | NUR ---
PATIENT REQUESTING PAIN MEDICATION. TYLENOL OFFERED. PATIENT REFUSED THE TYLENOL AND SAYS SHE NEEDS SOMETHING STRONGER. NO OTHER PAIN MEDICATIONS HAVE BEEN ORDERED
--- NOTE | 2019-05-25 23:58 | NUR ---
DR MERINO ON FLOOR TO SPEAK WITH PATIENT ABOUT PAIN MEDICATION
[2019-05-26] VITALS: BP 148/70
--- NOTE | 2019-05-26 00:07 | NUR ---
MEDICATED WITH PRN VISTARIL AND TYLENOL FOR C/O ANXIOUSNESS AND CHEST PAIN. WILL MONITOR
--- NOTE | 2019-05-26 01:27 | NUR ---
DR MERINO AWARE OF PATIENT STATING THAT THE PREVIOUS MEDICATIONS DID NOT HELP. STATES TO ORDER REQUIP ONE TIME
--- NOTE | 2019-05-26 01:48 | NUR ---
MEDICATED WITH ONE TIME REQUIP FOR PAIN AND RESTLESS LEGS
[2019-05-26 06:52] LABS: HEMATOCRIT 34.5 % (37.0-47.0); HEMOGLOBIN 10.8 g/dl (12.0-16.0); MEAN CORPUSCULAR HGB 29.8 pg (27.0-31.0); MEAN CORPUSCULAR HGB CONC 31.3 g/dl (33.0-37.0); MEAN PLATELET VOLUME 13.6 fl (9.6-12.3); RED BLOOD COUNT 3.63 10*6/uL (4.10-5.10); RED CELL DISTRI WIDTH 14.9 % (0-14.5); WHITE BLOOD COUNT 6.5 10*3/uL (4.8-10.8)
[2019-05-26 06:55] LABS: PLATELET COUNT AUTOMATED 28 10*3/uL (130-400)
--- NOTE | 2019-05-26 06:56 | NUR ---
DR MERINO AWARE OF CRITICAL PLATELETS. NO ORDERS TAKEN
[2019-05-26 07:08] LABS: CREATININE 1.22 mg/dL (0.55-1.02)
[2019-05-26 07:20] LABS: TOTAL CELLS COUNTED 100 #CELLS
[2019-05-26 07:22] LABS: PLATELET SUFFICIENCY LOW (NORMAL); POLYCHROMASIA SLIGHT; TARGET CELLS FEW
[2019-05-26 08:00] VITALS: BP 174/73
--- NOTE | 2019-05-26 08:00 | NUR ---
PT RESTING IN BED. RESP-EASY AND REGULAR. NO C/O AT THIS TIME. CALL LIGHT IN REACH. PT NPO FOR STRESS TEST. SEE SHIFT ASSESSMENT.
--- NOTE | 2019-05-26 09:00 | NUR ---
Fisher Oyster in to talk to patient. Patient states lives at home with family. There are 5 steps in the home. Physician: fallon dowling [facility] Home health services: none Patient's level of ADLs: INDEPENDENT Patient has working utilities: all working DME: home oxygen, portable tanks from [facility] Follow-up physician's appointment after d/c: will be made by hospitalist nurse director upon discharge Does patient want to access PORTAL?: no Discharge plan discussed with patient, she states she lives at home, is independent in adls and ambulation, she states she will return home when medically stable, discussed with her being a 30 day readmission and not having any home services, again discussed with her VNA and educated her on the services they provide, she declined any home services, case management will follow. BARBARA LOZA
--- NOTE | 2019-05-26 10:00 | NUR ---
OFF THE FLOOR FOR STRESS TEST.
--- NOTE | 2019-05-26 10:53 | NUR ---
INFORMED CONSENT SIGNED FOR LEXISCAN STRESS TEST WITH DR. MOSER. RESTING EKG NSR, HR 71, BP 146/82. PULSE OX 97% AND BREATH SOUNDS HARSH BUT CLEAR BILATERALLY. COMPLETED ONE MINUTE OF LEXISCAN PROTOCOL RECEIVING LEXISCAN 0.4MG OVER 10 SECONDS. NO ARRHYTHMIAS OR ST CHANGES NOTED. PT C/O STRANGE FEELING. LAST RECOVERY HR 94, BP 132/98. WAITING NUCLEAR SCANNING IN STABLE CONDITION.
[2019-05-26 12:00] VITALS: BP 145/61
--- NOTE | 2019-05-26 12:55 | NUR ---
PT REQUESTING SOMETHING FOR ANXIETY, MEDICATED WITH VISTARIL PO PER PRN ORDER, SEE EMAR. CALL LIGHT IN REACH.
--- NOTE | 2019-05-26 13:50 | NUR ---
PT RESTING IN BED. NO C/O AT THIS TIME. CALL FELECIA KC.
[2019-05-26 16:00] VITALS: BP 120/66
--- NOTE | 2019-05-26 16:45 | NUR ---
Discharge instructions reviewed with patient/family. Patient receptive and verbalizes understanding. Follow-up care arranged. Written instructions given to patient/family. HEPLOCK REMOVED 2X2 APPLIED. MONITOR REMOVED. AMBULATORY OFF THE FLOOR FOR DISCHARGE WITH VISITOR AT HER SIDE. DELTA TRIVEDI R
== END 2019-05-26 17:03 | disposition home or self-care (01) | DRG 683 ==
LOC: ED 15:01 → EDHOLD 18:01 → 4E 18:01
PROVIDERS: Emergency Medicine; Internal Medicine; ADMIT Internal Medicine
PROC: 4A02XM4 Measurement of Cardiac Total Activity, External Approach (ICD-10-PCS; principal; 2019-05-26)
PROC: 3E073KZ Introduction of Other Diagnostic Substance into Coronary Artery, Percutaneous Approach (ICD-10-PCS; principal; 2019-05-26)
DX: N17.0 Acute kidney failure with tubular necrosis (principal); D68.0 Von Willebrand disease; D69.3 Immune thrombocytopenic purpura; R07.89 Other chest pain; J44.9 Chronic obstructive pulmonary disease, unspecified; N18.3 Chronic kidney disease, stage 3 (moderate); K21.9 Gastro-esophageal reflux disease without esophagitis; F32.9 Major depressive disorder, single episode, unspecified; E78.5 Hyperlipidemia, unspecified; I12.9 Hypertensive chronic kidney disease with stage 1 through stage 4 chronic kidney disease, or unspecified chronic kidney disease; G47.33 Obstructive sleep apnea (adult) (pediatric); F17.210 Nicotine dependence, cigarettes, uncomplicated; E55.9 Vitamin D deficiency, unspecified; R74.0 Nonspecific elevation of levels of transaminase and lactic acid dehydrogenase [LDH]; E11.65 Type 2 diabetes mellitus with hyperglycemia; E11.22 Type 2 diabetes mellitus with diabetic chronic kidney disease; Z90.49 Acquired absence of other specified parts of digestive tract; Z98.42 Cataract extraction status, left eye; Z98.41 Cataract extraction status, right eye; Z98.51 Tubal ligation status; Z80.0 Family history of malignant neoplasm of digestive organs; Z80.1 Family history of malignant neoplasm of trachea, bronchus and lung; Z79.899 Other long term (current) drug therapy; Z93.2 Ileostomy status; Z88.6 Allergy status to analgesic agent; Z99.81 Dependence on supplemental oxygen

== ENCOUNTER 2019-06-01 21:39 | Inpatient (IN) | payer MEDICARE ==
[~2019-06-01] VITALS: Ht 154.9 cm; Wt 82.2 kg
[~2019-06-01 21:39] MED LIST changes: +HYDROXYZINE PAM25 M1 PO; +VITAMIN D32000 UNI1 PO
[2019-06-01 22:01] VITALS: BP 107/69
--- NOTE | 2019-06-01 23:00 | NUR ---
PT TRIES TO URINATE, UNABLE.
[2019-06-01 23:50] LABS: ALBUMIN 3.1 gm/dl (3.1-4.5); CREATININE 1.88 mg/dL (0.55-1.02); POTASSIUM 4.3 mmol/L (3.5-5.1); TOTAL PROTEIN 6.7 gm/dL (6.4-8.2)
[2019-06-02] VITALS (7 sets, daily range): BP systolic 104–133; BP diastolic 57–83
[2019-06-02 00:20] LABS: HEMATOCRIT 39.8 % (37.0-47.0); HEMOGLOBIN 12.2 g/dl (12.0-16.0); MEAN CELL VOLUME 96.8 fl (81.0-99.0); MEAN CORPUSCULAR HGB 29.7 pg (27.0-31.0); MEAN CORPUSCULAR HGB CONC 30.7 g/dl (33.0-37.0); MEAN PLATELET VOLUME 14.2 fl (9.6-12.3); RED BLOOD COUNT 4.11 10*6/uL (4.10-5.10); RED CELL DISTRI WIDTH 15.4 % (0-14.5)
[2019-06-02 00:54] LABS: BILIRUBIN NEGATIVE (NEGATIVE); BLOOD NEGATIVE (NEGATIVE); CLARITY CLOUDY (CLEAR); COLOR YELLOW (YELLOW); GLUCOSE NEGATIVE (NEGATIVE); KETONE NEGATIVE (NEGATIVE); LEUKO ESTERASE 1+ (NEGATIVE); UROBILINOGEN 0.2 E.U./dl (0.2-1.0)
[2019-06-02 00:59] LABS: NITRITE POSITIVE (NEGATIVE); RBC 21-30 rbc/hpf (0-2); WBC 41-50 wbc/hpf (0-5)
[2019-06-02 01:00] LABS: BACTERIA 3+; EPITHELIAL CELLS TNTC
[2019-06-02 01:07] LABS: PLATELET COUNT AUTOMATED 22 10*3/uL (130-400)
[2019-06-02 01:12] LABS: PLATELET SUFFICIENCY LOW (NORMAL); TOTAL CELLS COUNTED 100 #CELLS
[2019-06-02] MEDS ORDERED: ONDANSETRON HYDR8 MG PO (02:40)
--- NOTE | 2019-06-02 03:29 | NUR ---
A 63, admitted to , under the services of MIKAL Chery DO with a diagnosis of MACK, VOMITING, AND DEHYDRATION. Chief complaint is NAUSEA/VOMITING. Patient arrived via stretcher from ER. Monitor applied. Initial assessment completed. Vital signs taken and recorded. MIKAL CHERY DO notified of admission to the unit. Orders received. See assessment for past medical history, medications and allergies. Patient and/or family oriented to unit. [facility] visitation policy reviewed. Clothing/patient valuable form completed. ALY ARAUZ
--- NOTE | 2019-06-02 03:55 | NUR ---
DR MERINO CALLED, HOME MEDICATIONS UP TO DATE. PATIENT IS INQUIRING ABOUT NEW VISION PROGRAM- DR MERINO AWARE.
--- NOTE | 2019-06-02 06:48 | NUR ---
PT MEDICATED W/ZOFRAN PER PT REQUEST. PT RESTING QUIETLY IN BED. CALL LIGHT IN REACH.
[2019-06-02 07:09] LABS: HEMATOCRIT 34.3 % (37.0-47.0); HEMOGLOBIN 10.5 g/dl (12.0-16.0); MEAN CELL VOLUME 98.3 fl (81.0-99.0); MEAN CORPUSCULAR HGB 30.1 pg (27.0-31.0); MEAN CORPUSCULAR HGB CONC 30.6 g/dl (33.0-37.0); RED BLOOD COUNT 3.49 10*6/uL (4.10-5.10); RED CELL DISTRI WIDTH 15.6 % (0-14.5); WHITE BLOOD COUNT 7.5 10*3/uL (4.8-10.8)
[2019-06-02 07:17] LABS: ALBUMIN 2.8 gm/dl (3.1-4.5); CREATININE 1.47 mg/dL (0.55-1.02); PLATELET COUNT AUTOMATED 24 10*3/uL (130-400); POTASSIUM 4.7 mmol/L (3.5-5.1); TOTAL PROTEIN 5.7 gm/dL (6.4-8.2)
--- NOTE | 2019-06-02 07:17 | NUR ---
DR LOWERY CALLED AND MADE AWARE OF CRITICAL PLATELET COUNT. NO NEW ORDERS AT THIS TIME.
--- NOTE | 2019-06-02 07:20 | NUR ---
PT RESTING IN BED. ASSESSMENT COMPLETE. NO COMPLAINTS AT THIS TIME. RESPIRATIONS EASY AND REGULAR. CALL LIGHT WITHIN REACH. WILL CONTINUE TO MONITOR.
[2019-06-02 07:30] LABS: BASOPHILS 1 % (0-1); PLATELET SUFFICIENCY LOW (NORMAL); TOTAL CELLS COUNTED 100 #CELLS
[2019-06-02 10:37] LABS: URINE AMPHETAMINES < 1000 (1000ng/ml); URINE BARBITURATES < 200 (200ng/ml); URINE BENZODIAZEPINES > 200 (200ng/ml); URINE CANNABINOIDS (THC) < 50 (50ng/ml); URINE COCAINE < 300 (300ng/ml); URINE METHADONE < 300 (300ng/ml); URINE OPIATES < 300 (300ng/ml)
[2019-06-02 10:42] LABS: URINE PHENCYCLIDINE < 25 (25ng/ml)
--- NOTE | 2019-06-02 12:10 | NUR ---
[place] STAFF IN TO SEE PATIENT. [place] STAFF PROVIDED PATIENT WITH REFERRAL OPTIONS AND ALSO INFORMATION ON THE VIVITROL SHOT. CHANTE SHARMA B.A. METAL DRILL PRESS OPERATOR
--- NOTE | 2019-06-02 14:39 | NUR ---
NOTIFIED PT WOULD LIKE SOMETHING STRONGER FOR ABDOMINAL PAIN. HE STATES "I WILL PUT SOMETHING IN."
--- NOTE | 2019-06-02 14:57 | NUR ---
PT MEDICATED WITH ONE TIME NORCO ORDERED FOR ABDOMINAL PAIN RATED AN 8/10. WILL CHECK EFFECTIVENESS. CALL LIGHT WITHIN REACH.
--- NOTE | 2019-06-02 15:06 | NUR ---
PT CO FEELING NAUSEOUS MEDICATED WITH PRN ZOFRAN ORDERED. WILL CHECK EFFECTIVENESS. CALL LIGHT WITHIN REACH.
--- NOTE | 2019-06-02 15:38 | NUR ---
PT TRANSFERRED TO THE 5TH FLOOR AT THIS TIME WITH HER BELONGINGS. REPORT GIVEN TO NURSE ALYSSA ROJO. VSS. RESPIRATIONS EASY AND REGULAR.
--- NOTE | 2019-06-02 21:35 | NUR ---
PATIENT MEDICATED WITH ZOFRAN FOR COMPLAINTS OF LOWER ABDOMINAL PAIN. WILL CONTINUE TO MONITOR. O2 APPLIED AT 4L N/C PER PATIENT REQUEST. SAID SHE HAS TO SLEEP WITH 4L EVERY NIGHT. WILL CONTINUE TO MONITOR. CALL LIGHT IN REACH.
[2019-06-03] VITALS: BP 117/54
--- NOTE | 2019-06-03 04:32 | NUR ---
PATIENT MEDICATED WITH TYLENOL FOR COMPLAINTS OF LOWER ABDOMINAL PAIN. WILL CONTINUE TO MONITOR.
[2019-06-03 06:52] LABS: HEMATOCRIT 36.7 % (37.0-47.0); HEMOGLOBIN 11.1 g/dl (12.0-16.0); MEAN CELL VOLUME 98.4 fl (81.0-99.0); MEAN CORPUSCULAR HGB 29.8 pg (27.0-31.0); MEAN CORPUSCULAR HGB CONC 30.2 g/dl (33.0-37.0); RED BLOOD COUNT 3.73 10*6/uL (4.10-5.10); RED CELL DISTRI WIDTH 14.9 % (0-14.5); WHITE BLOOD COUNT 5.5 10*3/uL (4.8-10.8)
[2019-06-03 07:01] LABS: PLATELET COUNT AUTOMATED 25 10*3/uL (130-400)
[2019-06-03 07:19] LABS: ALBUMIN 3.1 gm/dl (3.1-4.5); CREATININE 1.15 mg/dL (0.55-1.02); POTASSIUM 4.8 mmol/L (3.5-5.1); TOTAL PROTEIN 6.2 gm/dL (6.4-8.2)
[2019-06-03 07:35] LABS: PLATELET SUFFICIENCY LOW (NORMAL); TOTAL CELLS COUNTED 100 #CELLS
[2019-06-03 08:00] VITALS: BP 139/93
--- NOTE | 2019-06-03 09:00 | NUR ---
Topper Packer in to talk to patient. Patient states lives at home with family There are no steps in the home. Physician: fallon dowling [facility] Home health services: none Patient's level of ADLs: INDEPENDENT Patient has working utilities: all working DME: home oxygen, portable tanks, [facility] Follow-up physician's appointment after d/c: will be made by hospitalist nurse director upon discharge Does patient want to access PORTAL?: no Discharge plan discussed with patient, she lives at home with her family, is independent in adls and ambulation, home home oxygen and portable tanks, she states she will return home when medically stable, case management will follow . BARBARA LOZA
--- NOTE | 2019-06-03 11:37 | NUR ---
Discharge instructions reviewed with patient/family. Patient receptive and verbalizes understanding. Follow-up care arranged. Written instructions given to patient/family. GRISELDA NASH
== END 2019-06-03 11:37 | disposition home or self-care (01) | DRG 640 ==
LOC: ED 21:39 → 5E 06-02 01:36 → EDHOLD 06-02 01:36 → 4E 06-02 02:09 → 5E 06-02 15:01
PROVIDERS: Internal Medicine; Physician Assistant; ADMIT Internal Medicine
DX: E86.0 Dehydration (principal); N17.0 Acute kidney failure with tubular necrosis; E44.1 Mild protein-calorie malnutrition; D68.0 Von Willebrand disease; D69.3 Immune thrombocytopenic purpura; E87.2 Acidosis; E87.0 Hyperosmolality and hypernatremia; E87.8 Other disorders of electrolyte and fluid balance, not elsewhere classified; J44.9 Chronic obstructive pulmonary disease, unspecified; F32.9 Major depressive disorder, single episode, unspecified; K21.9 Gastro-esophageal reflux disease without esophagitis; I71.4 Abdominal aortic aneurysm, without rupture; I12.9 Hypertensive chronic kidney disease with stage 1 through stage 4 chronic kidney disease, or unspecified chronic kidney disease; N18.3 Chronic kidney disease, stage 3 (moderate); E83.39 Other disorders of phosphorus metabolism; R82.71 Bacteriuria; G47.33 Obstructive sleep apnea (adult) (pediatric); F17.210 Nicotine dependence, cigarettes, uncomplicated; Z68.32 Body mass index [BMI] 32.0-32.9, adult; Z93.2 Ileostomy status; Z99.81 Dependence on supplemental oxygen; Z71.6 Tobacco abuse counseling; Z79.82 Long term (current) use of aspirin; Z79.899 Other long term (current) drug therapy; Z98.42 Cataract extraction status, left eye; Z98.41 Cataract extraction status, right eye; Z90.49 Acquired absence of other specified parts of digestive tract; Z98.51 Tubal ligation status; Z80.0 Family history of malignant neoplasm of digestive organs; Z80.1 Family history of malignant neoplasm of trachea, bronchus and lung

== ENCOUNTER → 2019-06-12 | Outpatient (CLI) | payer MEDICARE ==
[~2019-06-12] MED LIST changes: +ONDANSETRON HYDR8 MG PO
== END | disposition home or self-care (01) ==
LOC: LAB 06-10 14:27
DX: R53.83 Other fatigue (principal); D64.9 Anemia, unspecified

== ENCOUNTER → 2019-10-21 | Outpatient (CLI) | payer MEDICARE | END | disposition home or self-care (01) | LOC: RAD 09:24 | DX: G89.29 Other chronic pain (principal); M54.2 Cervicalgia; M54.6 Pain in thoracic spine ==

== ENCOUNTER → 2019-11-04 | Outpatient (CLI) | payer MEDICARE ==
[2019-11-04 12:05] LABS: HEMATOCRIT 31.9 % (37.0-47.0); MEAN CELL VOLUME 81.2 fl (81.0-99.0); MEAN CORPUSCULAR HGB 23.7 pg (27.0-31.0); MEAN CORPUSCULAR HGB CONC 29.2 g/dl (33.0-37.0); RED BLOOD COUNT 3.93 10*6/uL (4.10-5.10); RED CELL DISTRI WIDTH 16.1 % (0-14.5); WHITE BLOOD COUNT 5.5 10*3/uL (4.8-10.8)
[2019-11-04 12:37] LABS: OVALOCYTES FEW; PLATELET SUFFICIENCY LOW (NORMAL); POLYCHROMASIA SLIGHT; TOTAL CELLS COUNTED 100 #CELLS
[2019-11-04 13:28] LABS: PLATELET COUNT AUTOMATED 27 10*3/uL (130-400)
== END | disposition home or self-care (01) ==
LOC: LAB 09:45
PROVIDERS: Nurse Practitioner Primary Care
DX: I10 Essential (primary) hypertension (principal); E55.9 Vitamin D deficiency, unspecified; N28.9 Disorder of kidney and ureter, unspecified; Z79.899 Other long term (current) drug therapy

== ENCOUNTER → 2019-11-06 | Outpatient (CLI) | payer MEDICARE | END | disposition home or self-care (01) | LOC: LAB 11-05 10:47 | PROVIDERS: Nurse Practitioner Primary Care | DX: N28.9 Disorder of kidney and ureter, unspecified (principal) ==

== ENCOUNTER → 2019-11-19 | Outpatient (CLI) | payer MEDICARE | END | disposition home or self-care (01) | LOC: CT 00:22 | DX: J98.11 Atelectasis (principal); J84.10 Pulmonary fibrosis, unspecified; I25.10 Atherosclerotic heart disease of native coronary artery without angina pectoris; Z95.828 Presence of other vascular implants and grafts ==

== ENCOUNTER 2020-01-08 15:42 | Emergency (ER) | payer MEDICARE ==
[~2020-01-08] VITALS: Ht 154.9 cm; Wt 79.4 kg
[2020-01-08 15:57] VITALS: BP 143/87
[2020-01-08 16:24] LABS: BASO % 0.6 % (0.0-1.0); EOS # 0.2 10*3/uL (0.0-0.4); EOS % 3.1 % (1.0-4.0); HEMATOCRIT 34.7 % (37.0-47.0); LYMPH # 1.3 10*3/uL (1.3-4.4); MEAN CORPUSCULAR HGB 23.5 pg (27.0-31.0); MEAN CORPUSCULAR HGB CONC 29.4 g/dl (33.0-37.0); MONO # 0.4 10*3/uL (0.1-1.0); MONO % 6.7 % (3.0-9.0); NEUT # 4.5 10*3/uL (2.3-7.9); NEUT % 69.3 % (47.0-73.0); NUCLEATED RED BLOOD CELL 0.6 % (0.0-0.0); PLATELET COUNT AUTOMATED 35 10*3/uL (130-400); RED BLOOD COUNT 4.34 10*6/uL (4.10-5.10); RED CELL DISTRI WIDTH 19.4 % (0-14.5); WHITE BLOOD COUNT 6.5 10*3/uL (4.8-10.8)
[2020-01-08 16:37] LABS: ALBUMIN 3.8 gm/dl (3.1-4.5); CREATININE 1.76 mg/dL (0.55-1.02); POTASSIUM 4.2 mmol/L (3.5-5.1)
[2020-01-08 16:42] LABS: ACT PARTIAL THROMBO TIME 28.5 SECONDS (20.0-32.1); INTERNATIONAL NORM RATIO 1.1 (2.0-3.5)
[2020-01-08 16:56] LABS: BASOPHILS 1 % (0-1); PLATELET SUFFICIENCY LOW (NORMAL); TOTAL CELLS COUNTED 100 #CELLS
[2020-01-08 20:01] LABS: BACTERIA 2+; BILIRUBIN NEGATIVE; BLOOD NEGATIVE (NEGATIVE); CLARITY CLOUDY (CLEAR); COLOR YELLOW (YELLOW); EPITHELIAL CELLS TNTC; GLUCOSE NEGATIVE; KETONE NEGATIVE; LEUKO ESTERASE 1+ (NEGATIVE); NITRITE NEGATIVE (NEGATIVE); RBC 0-2 rbc/hpf (0-2); UROBILINOGEN 0.2 E.U./dl (0.0-1.0)
== END 2020-01-08 20:27 | disposition home or self-care (01) ==
LOC: ED 15:42
PROVIDERS: Nurse Practitioner Family; Physician Assistant
DX: K29.70 Gastritis, unspecified, without bleeding (principal); I12.9 Hypertensive chronic kidney disease with stage 1 through stage 4 chronic kidney disease, or unspecified chronic kidney disease; N18.3 Chronic kidney disease, stage 3 (moderate); E78.5 Hyperlipidemia, unspecified; G47.33 Obstructive sleep apnea (adult) (pediatric); K21.9 Gastro-esophageal reflux disease without esophagitis; Z90.49 Acquired absence of other specified parts of digestive tract; Z88.5 Allergy status to narcotic agent; Z79.899 Other long term (current) drug therapy

== ENCOUNTER 2020-03-08 10:32 | Emergency (ER) | payer MEDICARE ==
[~2020-03-08] VITALS: Ht 154.9 cm; Wt 79.4 kg
[2020-03-08 11:42] VITALS: BP 118/72
[2020-03-08] MEDS ORDERED: MEDROL DOSEPAK4 MG PO (13:57)
[2020-03-08] MEDS ORDERED: METHOCARBAMOL500 M1 PO (13:57)
== END 2020-03-08 14:12 | disposition home or self-care (01) ==
LOC: ED 10:32
DX: S16.1XXA Strain of muscle, fascia and tendon at neck level, initial encounter (principal); Z88.5 Allergy status to narcotic agent; Z79.899 Other long term (current) drug therapy; X58.XXXA Exposure to other specified factors, initial encounter; Y93.89 Activity, other specified; Y92.89 Other specified places as the place of occurrence of the external cause; Y99.8 Other external cause status

== ENCOUNTER → 2020-05-10 | Outpatient (CLI) | payer MEDICARE ==
[~2020-05-10] MED LIST changes: +METHOCARBAMOL500 M1 PO
[2020-05-10 10:39] LABS: BASO # 0.1 10*3/uL (0.0-0.1); BASO % 0.7 % (0.0-1.0); EOS # 0.4 10*3/uL (0.0-0.4); EOS % 4.2 % (1.0-4.0); HEMATOCRIT 45.9 % (37.0-47.0); LYMPH # 1.6 10*3/uL (1.3-4.4); LYMPH % 19.2 % (27.0-41.0); MEAN CELL VOLUME 92.2 fl (81.0-99.0); MEAN CORPUSCULAR HGB 28.1 pg (27.0-31.0); MEAN CORPUSCULAR HGB CONC 30.5 g/dl (33.0-37.0); MONO # 0.5 10*3/uL (0.1-1.0); MONO % 6.3 % (3.0-9.0); NEUT # 5.8 10*3/uL (2.3-7.9); NEUT % 69.4 % (47.0-73.0); PLATELET COUNT AUTOMATED 46 10*3/uL (130-400); RED BLOOD COUNT 4.98 10*6/uL (4.10-5.10); RED CELL DISTRI WIDTH 14.2 % (0-14.5); WHITE BLOOD COUNT 8.4 10*3/uL (4.8-10.8)
[2020-05-10 11:04] LABS: CHOLESTEROL 264 mg/dL (<200); HDL CHOLESTEROL 32 mg/dl (40-60); TRIGLYCERIDES 620 mg/dl (<150)
[2020-05-10 11:06] LABS: ALBUMIN 3.8 gm/dl (3.1-4.5); CREATININE 1.41 mg/dL (0.55-1.02); POTASSIUM 4.6 mmol/L (3.5-5.1); TOTAL PROTEIN 8.2 gm/dL (6.4-8.2)
[2020-05-12 21:06] LABS: TB1 Ag VALUE 0.06 IU/mL (.)
== END | disposition home or self-care (01) ==
LOC: LAB 09:52
PROVIDERS: Nurse Practitioner Primary Care; ATTEND Specialist
DX: I10 Essential (primary) hypertension (principal); E78.00 Pure hypercholesterolemia, unspecified; L40.0 Psoriasis vulgaris; Z79.899 Other long term (current) drug therapy

== ENCOUNTER 2020-09-22 19:12 | Emergency (ER) | payer MEDICARE ==
[~2020-09-22] VITALS: Ht 154.9 cm; Wt 81.6 kg
[2020-09-22 19:15] VITALS: BP 152/78
[2020-09-22] MEDS ORDERED: CEPHALEXIN500 M1 PO (19:25)
[2020-09-22] MEDS ORDERED: SEPTDS PO (19:25)
== END 2020-09-22 19:40 | disposition home or self-care (01) ==
LOC: ED 19:12
DX: L02.31 Cutaneous abscess of buttock (principal); Z88.5 Allergy status to narcotic agent; Z79.899 Other long term (current) drug therapy; Z90.49 Acquired absence of other specified parts of digestive tract; Z98.890 Other specified postprocedural states; Z98.51 Tubal ligation status

== ENCOUNTER 2020-11-09 10:06 | Emergency (ER) | payer MEDICARE ==
[~2020-11-09] VITALS: Wt 81.6 kg
[~2020-11-09 10:06] MED LIST changes: +CEPHALEXIN500 M1 PO; +SEPTDS PO
[2020-11-09 10:13] VITALS: BP 135/62
== END 2020-11-09 12:39 | disposition home or self-care (01) ==
LOC: ED 10:06
DX: L02.31 Cutaneous abscess of buttock (principal); F17.200 Nicotine dependence, unspecified, uncomplicated; Z90.49 Acquired absence of other specified parts of digestive tract; Z98.890 Other specified postprocedural states; Z79.899 Other long term (current) drug therapy; Z88.6 Allergy status to analgesic agent

== ENCOUNTER 2020-11-19 10:58 | Emergency (ER) | payer MEDICARE ==
[~2020-11-19] VITALS: Ht 154.9 cm; Wt 81.6 kg
[2020-11-19 11:12] VITALS: BP 152/97
[2020-11-19] MEDS ORDERED: ZITHROMAX250 MG PO (14:05)
[2020-11-19] MEDS ORDERED: PREDNISONE20 M1 PO (14:05)
[2020-11-19] MEDS ORDERED: VENTOLIN 02.5 MG/3 M INH (14:05)
== END 2020-11-19 14:30 | disposition home or self-care (01) ==
LOC: ED 10:58
DX: J45.909 Unspecified asthma, uncomplicated (principal); F17.200 Nicotine dependence, unspecified, uncomplicated; Z88.6 Allergy status to analgesic agent; Z79.899 Other long term (current) drug therapy; Z79.2 Long term (current) use of antibiotics; Z90.49 Acquired absence of other specified parts of digestive tract; Z90.711 Acquired absence of uterus with remaining cervical stump; Z98.51 Tubal ligation status

== ENCOUNTER 2020-11-22 04:05 | Emergency (ER) | payer MEDICARE ==
[~2020-11-22] VITALS: Ht 154.9 cm; Wt 81.6 kg
[~2020-11-22 04:05] MED LIST changes: +PREDNISONE20 M1 PO; +VENTOLIN 02.5 MG/3 M INH; +ZITHROMAX250 MG PO
[2020-11-22 04:14] VITALS: BP 191/87
[2020-11-22 05:10] LABS: ALBUMIN 3.7 gm/dl (3.1-4.5); ALKALINE PHOSPHATASE 103 U/L (45-117); BUN 24 mg/dl (7-24); CHLORIDE 108 mmol/L (98-107); POTASSIUM 4.2 mmol/L (3.5-5.1); SGOT/AST 50 IU/L (3-35); SGPT/ALT 57 U/L (12-78); SODIUM 138 mmol/L (136-145); TOTAL PROTEIN 7.9 gm/dL (6.4-8.2)
[2020-11-22 06:03] LABS: HEMATOCRIT 44.4 % (37.0-47.0); MEAN CELL VOLUME 97.8 fl (81.0-99.0); MEAN CORPUSCULAR HGB 31.1 pg (27.0-31.0); MEAN CORPUSCULAR HGB CONC 31.8 g/dl (33.0-37.0); PLATELET COUNT AUTOMATED 31 10*3/uL (130-400); RED BLOOD COUNT 4.54 10*6/uL (4.10-5.10); WHITE BLOOD COUNT 11.1 10*3/uL (4.8-10.8)
[2020-11-22 06:19] LABS: PLATELET SUFFICIENCY LOW (NORMAL); TOTAL CELLS COUNTED 100 #CELLS
== END 2020-11-22 06:47 | disposition home or self-care (01) ==
LOC: ED 04:05
PROVIDERS: Internal Medicine
DX: J20.8 Acute bronchitis due to other specified organisms (principal); N18.31 Chronic kidney disease, stage 3a; D69.6 Thrombocytopenia, unspecified; F17.200 Nicotine dependence, unspecified, uncomplicated; Z88.6 Allergy status to analgesic agent; Z79.899 Other long term (current) drug therapy; Z79.2 Long term (current) use of antibiotics; Z90.49 Acquired absence of other specified parts of digestive tract; Z98.890 Other specified postprocedural states; Z98.51 Tubal ligation status; Z93.2 Ileostomy status

== ENCOUNTER 2021-03-28 19:22 | Emergency (ER) | payer MEDICARE ==
[~2021-03-28] VITALS: Ht 154.9 cm; Wt 77.1 kg
[2021-03-28 20:23] VITALS: BP 184/107
== END 2021-03-28 23:54 | disposition left against medical advice (07) ==
LOC: ED 19:22
DX: Z53.21 Procedure and treatment not carried out due to patient leaving prior to being seen by health care provider (principal)

== ENCOUNTER → 2021-09-06 | Outpatient (CLI) | payer MEDICARE ==
[2021-09-06 13:00] LABS: MEAN CELL VOLUME 95.6 fl (81.0-99.0); MEAN CORPUSCULAR HGB 30.8 pg (27.0-31.0); MEAN CORPUSCULAR HGB CONC 32.2 g/dl (33.0-37.0); PLATELET COUNT AUTOMATED 31 10*3/uL (130-400); RED BLOOD COUNT 4.29 10*6/uL (4.10-5.10); RED CELL DISTRI WIDTH 16.2 % (0-14.5); WHITE BLOOD COUNT 7.2 10*3/uL (4.8-10.8)
[2021-09-06 13:22] LABS: MANUAL DIFF REFLEX YES
[2021-09-06 13:24] LABS: ATYPICAL LYMPHS 2 % (0-0); BASOPHILS 1 % (0-1); PLATELET SUFFICIENCY LOW (NORMAL); POLYCHROMASIA SLIGHT; TOTAL CELLS COUNTED 100 #CELLS
== END | disposition home or self-care (01) ==
LOC: LAB 12:27
DX: D69.59 Other secondary thrombocytopenia (principal); D50.0 Iron deficiency anemia secondary to blood loss (chronic)

== ENCOUNTER 2021-11-30 22:58 | Emergency (ER) | payer MEDICARE ==
[~2021-11-30] VITALS: Ht 154.9 cm; Wt 74.8 kg
[2021-11-30] MEDS ORDERED: LOSARTAN POTAS100 M1 PO (23:08)
[2021-11-30] MEDS ORDERED: TRAMADOL HCL50 MG PO (23:09)
[2021-12-01 00:41] VITALS: BP 176/88
[2021-12-01] MEDS ORDERED: AMOXICILLIN500 M2 PO (00:47)
== END 2021-12-01 01:01 | disposition home or self-care (01) ==
LOC: ED 22:58
DX: K05.10 Chronic gingivitis, plaque induced (principal); I12.9 Hypertensive chronic kidney disease with stage 1 through stage 4 chronic kidney disease, or unspecified chronic kidney disease; N18.30 Chronic kidney disease, stage 3 unspecified; K21.9 Gastro-esophageal reflux disease without esophagitis; E78.5 Hyperlipidemia, unspecified; J44.9 Chronic obstructive pulmonary disease, unspecified; F17.200 Nicotine dependence, unspecified, uncomplicated; Z88.8 Allergy status to other drugs, medicaments and biological substances; Z79.899 Other long term (current) drug therapy; Z90.49 Acquired absence of other specified parts of digestive tract; Z98.890 Other specified postprocedural states; Z98.51 Tubal ligation status

== ENCOUNTER → 2022-02-06 | Outpatient (CLI) | payer MEDICARE ==
[~2022-02-06] MED LIST changes: +AMOXICILLIN500 M2 PO; +LOSARTAN POTAS100 M1 PO
== END ==
LOC: LAB 14:07
PROVIDERS: ATTEND Internal Medicine
DX: R19.7 Diarrhea, unspecified (principal)

== ENCOUNTER → 2022-07-27 | Outpatient (CLI) | payer MEDICARE ==
[2022-07-27 14:00] LABS: POTASSIUM 4.5 mmol/L (3.4-5.1); TOTAL PROTEIN 7.4 gm/dL (6.0-8.0); VITAMIN D, 25-HYDROXY 32.6 ng/mL (30-100)
== END | disposition home or self-care (01) ==
LOC: LAB 13:01
PROVIDERS: ATTEND Internal Medicine
DX: I10 Essential (primary) hypertension (principal); E55.9 Vitamin D deficiency, unspecified; E53.8 Deficiency of other specified B group vitamins; E78.00 Pure hypercholesterolemia, unspecified

== ENCOUNTER → 2023-09-25 | Outpatient (CLI) | payer MEDICARE ==
[~2023-09-25] MED LIST changes: +HYDROCHLOROTHIA25 M1 PO
== END ==
LOC: US 00:12 → MAMMO 09:30
PROVIDERS: ATTEND Internal Medicine
DX: Z12.31 Encounter for screening mammogram for malignant neoplasm of breast (principal); I71.40 Abdominal aortic aneurysm, without rupture, unspecified

== ENCOUNTER → 2023-10-23 | Outpatient (CLI) | payer MEDICARE | END | disposition home or self-care (01) | LOC: MAMMO 10-10 09:00 → US 10-10 09:30 → MAMMO 07:44 | PROVIDERS: ATTEND Internal Medicine | DX: N63.24 Unspecified lump in the left breast, lower inner quadrant (principal); N60.02 Solitary cyst of left breast ==

== ENCOUNTER 2024-03-25 03:30 | Emergency (ER) | payer MEDICARE ==
[~2024-03-25] VITALS: Ht 157.4 cm; Wt 74.8 kg
[2024-03-25 03:35] VITALS: BP 154/82
[2024-03-25] MEDS ORDERED: OXYCODONE HCL5 MG PO (03:47)
[2024-03-25] MEDS ORDERED: AMLODIPINE BESYL5 MG PO (03:47)
[2024-03-25] MEDS ORDERED: TREMFYA100 MG/11 SQ (03:47)
[2024-03-25] MEDS ORDERED: METOPROLOL TA37.5 MG PO (03:48)
[2024-03-25] MEDS ORDERED: FAMOTIDINE20 M1 PO (03:48)
[2024-03-25] MEDS ORDERED: methylPREDNISolone sod succ 125 MG VIAL IM ONE (04:05)
[2024-03-25] MEDS ORDERED: PREDNISONE20 M1 PO (04:10)
[2024-03-25] MEDS ORDERED: ZITHROMAX250 MG PO (04:10)
== END 2024-03-25 04:43 | disposition home or self-care (01) ==
LOC: ED 03:30
DX: B34.9 Viral infection, unspecified (principal); J18.9 Pneumonia, unspecified organism; I10 Essential (primary) hypertension; J44.9 Chronic obstructive pulmonary disease, unspecified; F32.A Depression, unspecified; F11.90 Opioid use, unspecified, uncomplicated; F17.200 Nicotine dependence, unspecified, uncomplicated; Z88.6 Allergy status to analgesic agent; Z88.8 Allergy status to other drugs, medicaments and biological substances; Z98.890 Other specified postprocedural states; Z90.49 Acquired absence of other specified parts of digestive tract

== ENCOUNTER → 2024-08-24 | Outpatient (CLI) | payer MEDICARE ==
[~2024-08-24] MED LIST changes: +AMLODIPINE BESYL5 MG PO; +FAMOTIDINE20 M1 PO; +METOPROLOL TA37.5 MG PO; +OXYCODONE HCL5 MG PO; +TREMFYA100 MG/11 SQ
== END | disposition home or self-care (01) ==
LOC: LAB 07:44
PROVIDERS: ATTEND Internal Medicine
DX: E78.2 Mixed hyperlipidemia (principal)

== ENCOUNTER 2024-08-31 16:38 | Emergency (ER) | payer MEDICARE ==
[~2024-08-31] VITALS: Ht 157.4 cm; Wt 74.8 kg
[2024-08-31 16:48] VITALS: BP 128/69
[2024-08-31] MEDS ORDERED: VENT7GM INH (16:53)
[2024-08-31] MEDS ORDERED: Albuterol Sulf/Ipratropium 3 ML VIAL NEB ONE (17:05)
[2024-08-31] MEDS ORDERED: methylPREDNISolone sod succ 125 MG VIAL IM ONE (17:05)
[2024-08-31] MEDS ORDERED: Water, Sterile 10 ML VIAL ONE (17:30)
[2024-08-31 17:43] LABS: POTASSIUM 3.9 mmol/L (3.4-5.1)
[2024-08-31 19:13] LABS: HEMATOCRIT 41.3 % (37.0-47.0); MEAN CELL VOLUME 96.7 fl (81.0-99.0); MEAN CORPUSCULAR HGB 30.7 pg (27.0-31.0); MEAN CORPUSCULAR HGB CONC 31.7 g/dl (33.0-37.0); RED BLOOD COUNT 4.27 10*6/uL (4.10-5.10); RED CELL DISTRI WIDTH 14.9 % (0-14.5); WHITE BLOOD COUNT 9.1 10*3/uL (4.8-10.8)
[2024-08-31 19:20] LABS: MANUAL DIFF REFLEX YES
[2024-08-31 19:22] LABS: PLATELET COUNT AUTOMATED 27 10*3/uL (130-400)
[2024-08-31 19:43] LABS: PLATELET SUFFICIENCY LOW (NORMAL); TOTAL CELLS COUNTED 100 #CELLS
[2024-08-31 19:44] LABS: POLYCHROMASIA SLIGHT
[2024-08-31] MEDS ORDERED: VENTOLIN 02.5 MG/3 M INH (20:01)
[2024-08-31] MEDS ORDERED: PREDNISONE50 MG PO (20:01)
== END 2024-08-31 20:08 | disposition home or self-care (01) ==
LOC: ED 16:38
PROVIDERS: Physician Assistant Medical
DX: J44.1 Chronic obstructive pulmonary disease with (acute) exacerbation (principal); D69.6 Thrombocytopenia, unspecified; I12.9 Hypertensive chronic kidney disease with stage 1 through stage 4 chronic kidney disease, or unspecified chronic kidney disease; N18.9 Chronic kidney disease, unspecified; F17.200 Nicotine dependence, unspecified, uncomplicated; Z88.8 Allergy status to other drugs, medicaments and biological substances; Z88.6 Allergy status to analgesic agent; Z79.899 Other long term (current) drug therapy; Z90.49 Acquired absence of other specified parts of digestive tract; Z98.890 Other specified postprocedural states

== ENCOUNTER 2024-12-24 15:07 | Emergency (ER) | payer MEDICARE, OTHER ==
[~2024-12-24] VITALS: Wt 74.8 kg
[~2024-12-24 15:07] MED LIST changes: +VENT7GM INH
[2024-12-24 15:23] VITALS: BP 119/82
[2024-12-24 16:43] LABS: MEAN CELL VOLUME 95.1 fl (81.0-99.0); MEAN CORPUSCULAR HGB 29.4 pg (27.0-31.0); NUCLEATED RED BLOOD CELL 0.0 % (0.0-0.0); NUCLEATED RED BLOOD CELL 0.0 10*3/uL (0.0-0.0); RED CELL DISTRI WIDTH 15.3 % (0-14.5)
[2024-12-24 17:03] LABS: BUN 15.0 mg/dl (9-23)
[2024-12-24 17:15] LABS: MANUAL DIFF REFLEX YES
[2024-12-24 17:19] LABS: BASOPHILS 2 % (0-1); PLATELET SUFFICIENCY LOW (NORMAL)
[2024-12-24 17:29] LABS: PLATELET COUNT AUTOMATED 25 10*3/uL (130-400)
[2024-12-24] MEDS ORDERED: VIBRAMYCIN100 MG PO (18:29)
== END 2024-12-24 18:43 | disposition home or self-care (01) ==
LOC: ED 15:07
PROVIDERS: Nurse Practitioner Family
DX: J32.9 Chronic sinusitis, unspecified (principal); H92.01 Otalgia, right ear; I10 Essential (primary) hypertension; J44.9 Chronic obstructive pulmonary disease, unspecified; F32.A Depression, unspecified; Z90.49 Acquired absence of other specified parts of digestive tract; L40.9 Psoriasis, unspecified; F17.200 Nicotine dependence, unspecified, uncomplicated; Z88.8 Allergy status to other drugs, medicaments and biological substances; Z88.6 Allergy status to analgesic agent; Z79.899 Other long term (current) drug therapy; Z98.890 Other specified postprocedural states